=== PATIENT | female | born 1955 | race African-American/Black ===

== ENCOUNTER 2024-09-11 12:18 | Observation (INO) | payer MEDICARE, SELFPAY ==
[2024-09-11] VITALS (7 sets, daily range): BP systolic 131–170; BP diastolic 76–90; PULSE 65–98; RESP 16–20; TEMP 36.6–36.7; O2SAT 99–100; BMI 30.7
--- NOTE | 2024-09-11 14:35 | ED.GENADULT ---
HPI - General Adult General Chief complaint: Neuro Symptoms/Deficit Stated complaint: gait changes, ataxia Time Seen by Provider: 09/11/24 14:32 Source: patient Mode of arrival: ambulatory Limitations: no limitations History of Present Illness HPI narrative: 69 YEARS OLD FEMALE CAME TO THE ED WITH HER COMPLAINING OF UNSTEADY GAIT FOR THE LAST 5 DAYS. PATIENT HOLD ON FURNITURES AND ON THE WALL WITH FREQUENT FALLS OVER THE LAST 5 DAYS. SHE DENIES ANY FEVER, CHILLS, NAUSEA, VOMITING, HEADACHE, NECK PAIN OR BACK PAIN OR CHEST PAIN OR SHORTNESS OF BREATH. HISTORY OF HYPERTENSION, HYPERLIPIDEMIA, TIAS AND TOBACCO DEPENDENT, DOES NOT DRINK OR USE DRUGS PATIENT HAD HISTORY OF CERVICAL DECOMPRESSION 8 YEARS AGO Related Data Home Medications ?Medication ?Instructions ?Recorded ?Confirmed ?Last Taken ?Type amlodipine 5 mg tablet (Norvasc) 5 mg PO DAILY 09/11/24 09/11/24 Unknown History aspirin 81 mg capsule 81 mg PO DAILY 09/11/24 09/11/24 Unknown History cholecalciferol (vitamin D3) 125 15,000 unit PO WEEKLY 09/11/24 09/12/24 Unknown History mcg (5,000 unit) capsule gabapentin 800 mg tablet 800 mg PO HS 09/11/24 09/11/24 Unknown History hydrochlorothiazide 12.5 mg tablet 12.5 mg PO DAILY 09/11/24 09/11/24 Unknown History ibuprofen 800 mg tablet 800 mg PO Q6H 09/11/24 09/11/24 Unknown History ixekizumab 80 mg/mL subcutaneous 80 mg subcut ONCE 09/11/24 09/11/24 Unknown History auto-injector (Taltz Autoinjector) losartan 100 mg tablet (Cozaar) 100 mg PO DAILY 09/11/24 09/11/24 Unknown History rosuvastatin 40 mg tablet (Crestor) 40 mg PO DAILY 09/11/24 09/11/24 Unknown History tizanidine 4 mg capsule 4 mg PO HS 09/11/24 09/11/24 Unknown History tramadol 50 mg tablet 50 mg PO .am 09/11/24 09/11/24 09/11/24 History tramadol 50 mg tablet 50 mg PO Q6-8H PRN pain 09/11/24 09/11/24 Unknown History hydroxychloroquine 200 mg tablet 200 mg PO DAILY 09/12/24 09/12/24 Unknown History (Plaquenil) Allergies Allergy/AdvReac Type Severity Reaction Status Date / Time Sulfa (Sulfonamide Allergy Severe Anaphylaxis Verified 09/11/24 12:22 Antibiotics) Review of Systems Review of Systems: All systems reviewed & are unremarkable except as noted in HPI and below PMFSH Past Medical History Medical History (Updated 09/11/24 @ 22:59 by Larisa Pickering PA-C) Rheumatoid arthritis Transient ischemic attack Peripheral neuropathy Tobacco dependence Hyperlipidemia Hypertension Surgical History Surgical History (Updated 09/11/24 @ 22:59 by Larisa Pickering PA-C) History of arthroplasty of both shoulders History of lumbar fusion History of cervical spinal surgery Social History Social History (Updated 09/11/24 @ 23:00 by Larisa Pickering PA-C) Social History: Surrogate medical decision maker: Tacho Westbrook, spouse. Code status: Full code. Smoking packs per day: 0.5 Smoking cigarettes per day: 10.0 Years smoked: 30 Smoking pack-years: 15.00 Smoking status: Current every day smoker Tobacco type: cigarettes Second hand tobacco smoke exposure: Yes Alcohol intake: current Substance use: current Do You Feel Safe in your Home?: Yes Lack of Transportation: No Lack of Food: Never True Current Housing: I Have Housing Concerned About Future Housing: No Difficulty Paying Gas/Electric Bills: No Difficulty Paying for Meds: No Currently Unemployed: No Education: Associate Degree Difficulty w/ Childcare or Family Care: No Additional living arrangements comments: Lives with spouse. 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 Spiritual care concerns: No Exam Narrative: GENERAL APPEARANCE: WELL-DEVELOPED, WELL-NOURISHED SKIN: NORMAL COLOR HEAD: NORMOCEPHALIC, NONTRAUMATIC EYES: CLEAR CONJUNCTIVA, EXOPHTHALMOS ENT: OROPHARYNX NORMAL, EARS NORMAL, NOSE NORMAL, NECK: SUPPLE, NONTENDER CHEST AND RESPIRATORY: AIRWAY PATENT, NO RESPIRATORY DISTRESS, NO ACCESSORY MUSCLE USE HEART: REGULAR RATE/RHYTHM ABDOMEN: SOFT, NONTENDER, NO ORGANOMEGALY, QUIET BOWEL SOUNDS VASCULAR: NORMAL PERIPHERAL PULSES, NORMAL CAPILLARY REFILL. MUSCULOSKELETAL: NORMAL RANGE OF MOTION, NONTENDER BACK NEUROLOGIC: ALERT AND ORIENTED ?3 Course Consultations Consultation #1: DR DÍAZ Date: 09/11/24 Time: 16:48 Vital Signs Vital signs: Vital Signs Temperature 36.7 C 09/11/24 12:19 Pulse Rate 98 09/11/24 12:19 Respiratory Rate 16 09/11/24 12:19 Blood Pressure 147/82 H 09/11/24 12:19 Pulse Oximetry 100 09/11/24 12:19 Temperature 36.4 C L 09/12/24 04:45 Pulse Rate 64 09/12/24 08:00 Respiratory Rate 18 09/12/24 04:45 Blood Pressure 140/77 09/12/24 04:45 Pulse Oximetry 97 09/12/24 04:45 Oxygen Delivery Room Air 09/12/24 11:30 Medical Decision Making [facility] Narrative Medical decision making narrative: PATIENT PRESENTS WITH UNSTEADY GAIT AND FREQUENT FALLS OVER THE LAST 5 DAYS VITAL SIGNS ARE STABLE PHYSICAL EXAMINATION CONSISTENT WITH UNSTEADY GAIT AND SLIGHT WEAKNESS OF THE LOWER EXTREMITY BILATERALLY DIFFERENTIAL DIAGNOSIS INCLUDE B12 DEFICIENCY, HYPOTHYROIDISM, DEPRESSION, MUSCLE WEAKNESS, PARKINSON'S DISEASE, STROKE, MULTIPLE SCLEROSIS, CEREBELLAR ATAXIA, POLYNEUROPATHY AND NORMAL PRESSURE HYDROCEPHALUS BLOOD WORKUP TODAY INCLUDES CBC, CMP, TSH, TROPONIN SHOWED NO ACUTE ABNORMALITIES CT HEAD, CTA HEAD AND NECK SHOWED NO SIGNIFICANT ABNORMALITIES CHEST X-RAY SHOWED NO ACUTE CARDIOPULMONARY URINALYSIS SHOWED EVIDENCE OF INFECTION OR ABNORMALITIES Vital Signs Vital Signs: Vital Signs Temperature 36.7 C 09/11/24 12:19 Pulse Rate 98 09/11/24 12:19 Respiratory Rate 16 09/11/24 12:19 Blood Pressure 147/82 H 09/11/24 12:19 Pulse Oximetry 100 09/11/24 12:19 Temperature 36.4 C L 09/12/24 04:45 Pulse Rate 64 09/12/24 08:00 Respiratory Rate 18 09/12/24 04:45 Blood Pressure 140/77 09/12/24 04:45 Pulse Oximetry 97 09/12/24 04:45 Oxygen Delivery Room Air 09/12/24 11:30 Lab Data 09/11/24 15:01 09/12/24 06:14 Labs: Lab Results 09/11/24 09/11/24 09/11/24 Range/Units 15:01 15:57 16:17 WBC 8.9 (4.5-10.0) K/mm3 RBC 4.68 (4.2-5.4) M/mm3 Hgb 15.8 H (12.0-15.0) g/dL Hct 45.6 (37.0-47.0) % MCV 97.4 (80-100) fl MCH 33.8 (26-34) pg MCHC 34.6 (32-36) g/dl RDW 14.6 H (11.5-14.5) % Plt Count 298 (150-375) k/mm3 MPV 10.6 H (7.4-10.4) fl Immature Gran % (Auto) 0.1 (0-0.5) % Neut % (Auto) 50.3 (45.5-73.1) % Lymph % (Auto) 39.8 (18.3-44.2) % Garvin % (Auto) 6.1 (2.6-8.5) % Eos % (Auto) 3.2 (0-4.4) % Baso % (Auto) 0.5 (0.2-1.2) % Lymph # (Auto) 3.53 H (0.9-3.2) K/mm3 Garvin # (Auto) 0.5 (0.1-0.6) K/mm3 Eos # (Auto) 0.3 (0-0.3) K/mm3 Baso # (Auto) 0.0 (0.0-0.1) K/mm3 Abs Immat Gran (auto) 0.01 (0.00-0.031) K/mm3 Absolute Neuts (auto) 4.5 (1.3-6.7) K/mm3 Absolute Nucleated RBC 0.000 (0.0-0.012) K/mm3 Nucleated RBC % 0.0 (0.0-0.2) % PT 13.8 (11.1-14.7) Seconds INR 1.0 APTT 23.4 (22.3-36.8) Seconds Sodium 139 (137-145) mmol/L Potassium 4.2 (3.4-5.0) mmol/L Chloride 103 (98-107) mmol/L Carbon Dioxide 23 (22-30) mmol/L Anion Gap 13 H (4-12) mmol/L BUN 14 (7-17) mg/dL Creatinine 0.67 L (0.7-1.0) mg/dL Estim Creat Clear Calc 64 ml/min Estimated GFR > 60 (59 - ) Glucose 184 H (65-110) mg/dL POC Capillary Glucose 134 H (65-105) mg/dl Hemoglobin A1c 6.8 H (<5.7) % Calcium 9.6 (8.4-10.2) mg/dL Total Bilirubin 0.6 (0.2-1.3) mg/dL AST 52 H (14-36) U/L ALT 53 H (6-35) U/L Alkaline Phosphatase 131 H (38-126) U/L Troponin I 0.014 (0.000-0.034) ng/mL Total Protein 8.0 (6.3-8.2) g/dL Albumin 4.3 (3.5-5.1) g/dL Vitamin B12 587.0 (239-931) pg/mL TSH 0.461 L (0.465-4.680) uIU/mL Free T4 0.81 (0.78-2.19) ng/dL Urine Color Yellow (Yellow) Urine Appearance Clear (Clear) Urine pH 6.0 (5.0-9.0) Ur Specific [place] 1.043 H (1.001-1.035) Urine Protein 1+ H (Negative) mg/dL Urine Glucose (UA) Negative (Negative) mg/dL Urine Ketones Trace H (Negative) mg/dL Ur Blood (Man) Negative (Negative) Urine Nitrate Negative (Negative) Urine Bilirubin Negative (Negative) Urine Urobilinogen 0.2 (<2.0) mg/dL Leukocyte Esterase Rfl Negative (Negative) TIERNEY/UL Urine RBC 0-2 (0-2) /hpf Urine WBC 0-5 (0-3) /hpf Ur Squamous Epith Cells None seen (Few) /hpf Urine Bacteria None seen /hpf Urine Casts 3-5 Imaging Data Radiologist's impression: Impressions Chest X-Ray 09/11/24 15:17 IMPRESSION: No acute cardiopulmonary pathology. Head/Neck CTA 09/11/24 15:58 IMPRESSION: 1. CTA neck. Percent stenosis per NASCET criteria is 10% on the left side. 2. Bifid right A1 segment. No significant stenosis seen in the intracranial arteries. 3. Right posterior communicating artery continues as the posterior cerebral artery. ECG Data EKG #1: Attestation: I personally reviewed and interpreted this ECG as follows: ECG completion date: 09/11/24 Interpretation: NORMAL SINUS RHYTHM AT 73 BEATS PER MINUTE, VOLTAGE CRITERIA FOR LVH, NONSPECIFIC ST T-WAVE ABNORMALITY, NO PREVIOUS EKG AVAILABLE FOR COMPARISON Critical Care Time Critical Care Time Critical Care Time: No Discharge Plan Discharge Clinical Impression: Unsteady gait when walking Patient Disposition: Still a Patient Condition: Guarded Prognosis Quality Stroke Scale Stroke Scale 1: Stroke scale date:: 09/11/24 1a Level of consciousness: alert-0 1b Level of consciousness questions: answers both correctly-0 1c Level of consciousness commands: obeys both correctly-0 2 Best gaze: normal-0 3 Visual: no visual loss-0 4 Facial palsy: normal-0 5a Motor: left arm: no drift-0 5b Motor: right arm: no drift-0 6a Motor: left leg: no drift-0 6b Motor: right leg: no drift-0 7 Limb ataxia: present in two limbs-2 8 Sensory: normal-0 9 Best language: no aphasia-0 10 Dysarthria: normal-0 11 Extinction and inattention: no abnormality-0 Level:: 2
[2024-09-11 15:12] LABS: Basophils Percent Auto 0.5 % (0.2-1.2); Eosinophils Absolute Auto 0.3 K/mm3 (0-0.3); Eosinophils Percent Auto 3.2 % (0-4.4); Hematocrit 45.6 % (37.0-47.0); Hemoglobin 15.8 g/dL (12.0-15.0); Immature Granulocyte Absolute 0.01 K/mm3 (0.00-0.031); Immature Granulocyte Percent A 0.1 % (0-0.5); Lymphocytes Absolute Auto 3.53 K/mm3 (0.9-3.2); Lymphocytes Percent Auto 39.8 % (18.3-44.2); Mean Corpuscular HGB Conc 34.6 g/dl (32-36); Mean Corpuscular Hemoglobin 33.8 pg (26-34); Mean Corpuscular Volume 97.4 fl (80-100); Mean Platelet Volume 10.6 fl (7.4-10.4); Monocytes Absolute Auto 0.5 K/mm3 (0.1-0.6); Monocytes Percent Auto 6.1 % (2.6-8.5); Neutrophils Absolute Auto 4.5 K/mm3 (1.3-6.7); Neutrophils Percent Auto 50.3 % (45.5-73.1); Platelet Count Result 298 k/mm3 (150-375); Red Blood Count 4.68 M/mm3 (4.2-5.4); Red Cell Distribution Width 14.6 % (11.5-14.5); White Blood Count 8.9 K/mm3 (4.5-10.0)
[2024-09-11 15:17] LABS: Partial Thromboplastin Time 23.4 Seconds (22.3-36.8); Prothrombin Time 13.8 Seconds (11.1-14.7)
[2024-09-11 15:26] LABS: Alanine Aminotransferase 53 U/L (6-35); Albumin Level 4.3 g/dL (3.5-5.1); Alkaline Phosphatase 131 U/L (38-126); Anion Gap 13 mmol/L (4-12); Aspartate Amino Transferase 52 U/L (14-36); Bilirubin,Total 0.6 mg/dL (0.2-1.3); Blood Urea Nitrogen 14 mg/dL (7-17); Calcium 9.6 mg/dL (8.4-10.2); Carbon Dioxide 23 mmol/L (22-30); Chloride 103 mmol/L (98-107); Estimated CRCL calculation 64 ml/min; Estimated Glomerular Filt Rate > 60; Glucose 184 mg/dL (65-110); Potassium 4.2 mmol/L (3.4-5.0); Sodium 139 mmol/L (137-145)
[2024-09-11 15:35] LABS: Troponin I 0.014 ng/mL (0.000-0.034)
[2024-09-11 15:54] LABS: Thyroid Stimulating Hormone 0.461 uIU/mL (0.465-4.680)
[2024-09-11 16:01] LABS: Glucose Point of Care 134 mg/dl (65-105)
[2024-09-11 16:32] LABS: Add Urine Microscopic? YES; Appearance Urine Clear (Clear); Bacteria Urine None Seen /hpf; Bilirubin Urine Negative (Negative); Blood Urine Negative (Negative); Color Urine Yellow (Yellow); Glucose Urine UA Negative (Negative); Ketones Urine Trace mg/dL (Negative); Leukocyte Esterase Ur Negative LEU/UL (Negative); Nitrate Urine Negative (Negative); Protein Urine 1+ mg/dL (Negative); RBC Urine 0-2 /hpf (0-2); Specific Grav Ur 1.043 (1.001-1.035); Squamous Epithelial Cell Urine None Seen /hpf (Few); Urobilinogen Urine 0.2 mg/dL (<2.0); WBC Urine 0-5 /hpf (0-3)
--- NOTE | 2024-09-11 17:05 | PM.IMHP ---
H&P: HPI History of Present Illness Date/Time: 09/11/24 18:30 Chief Complaint: Balance problems. Narrative: This is a pleasure 69-year-old female smoker with history of transient ischemic attack, cervical spine decompression several years ago, lumbar fusion, peripheral neuropathy affecting left lateral toes only, hypertension, hyperlipidemia, and rheumatoid arthritis who presented to the emergency department via private vehicle with complaints of balance problems. The patient provides the following history. She gives a 5 day history of feeling off balance and reports having to hold onto furniture and roe to stabilize herself while walking. She has had several falls, landing on her knees, but luckily has not injured herself aside from abrasions. She also feels that her legs are heavy. She denies vision changes, facial droop, difficulty speaking and swallowing, neck pain, arm pain, focal weakness, new paresthesias, saddle anesthesia, urine retention, bowel incontinence, and recent trauma. In the ED: Vital signs were stable on arrival. Labs were significant for a hemoglobin of 15.8, creatinine 0.67, glucose 184, AST 52, ALT 53, alkaline phosphatase 131, troponin 0.014, TSH 0.461. Head and neck CTA did not show any significant findings. She is being admitted in this setting for close monitoring and neurology consultation. Review of Systems Review of Systems: 12 systems were reviewed and are negative except for as per HPI. [facility] Past Medical History Medical History (Updated 09/11/24 @ 22:59 by Larisa Pickering PA-C) Rheumatoid arthritis Transient ischemic attack Peripheral neuropathy Tobacco dependence Hyperlipidemia Hypertension Surgical History Surgical History (Updated 09/11/24 @ 22:59 by Larisa Pickering PA-C) History of arthroplasty of both shoulders History of lumbar fusion History of cervical spinal surgery Social History Social History (Updated 09/11/24 @ 23:00 by Larisa Pickering PA-C) Social History: Surrogate medical decision maker: Tacho Westbrook, spouse. Code status: Full code. Smoking packs per day: 0.5 Smoking cigarettes per day: 10.0 Years smoked: 30 Smoking pack-years: 15.00 Smoking status: Current every day smoker Tobacco type: cigarettes Second hand tobacco smoke exposure: Yes Alcohol intake: current Substance use: current Do You Feel Safe in your Home?: Yes Lack of Transportation: No Lack of Food: Never True Current Housing: I Have Housing Concerned About Future Housing: No Difficulty Paying Gas/Electric Bills: No Difficulty Paying for Meds: No Currently Unemployed: No Education: Associate Degree Difficulty w/ Childcare or Family Care: No Additional living arrangements comments: Lives with spouse. 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 Spiritual care concerns: No Meds Home Medications and Allergies Allergies Allergy/AdvReac Type Severity Reaction Status Date / Time Sulfa (Sulfonamide Allergy Severe Anaphylaxis Verified 09/11/24 12:22 Antibiotics) Vital Signs Vital Signs - 24 hr 09/11/24 12:19 09/11/24 14:33 09/11/24 16:05 Temperature 98.0 F Pulse Rate 98 82 98 Respiratory Rate 16 20 18 Blood Pressure 147/82 H 170/84 H 147/76 H Pulse Oximetry 100 99 99 Exam Narrative: General: Nontoxic-appearing female in the semi-Valdivia position in bed in no acute distress. Weight: 73.9 kg. BMI: 30.8. HEENT: PERRL, EOMI. Sclera anicteric. Oral mucosa moist. Oropharynx clear. Neck: Supple. No carotid bruits. No midline vertebral tenderness. Respiratory: Lungs are clear to auscultation bilaterally. Cardiovascular: Regular rate and rhythm with S1-S2. Gastrointestinal: Abdomen is soft, nontender, and nondistended with positive bowel sounds. Skin: Warm and dry. No rash or lesions on limited exam. Extremities: No cyanosis, clubbing, or edema. Radial and pedal pulses intact. Neurological: Alert and oriented. Cranial nerves 2-12 are grossly intact. Speech is clear. No facial asymmetry. No pronator drift. Normal finger to nose. Hand retail consultant and foot pushes equal bilaterally. Sensation intact throughout. Dysmetric [id number] bilaterally. Psychiatric: Pleasant and cooperative with normal mood and affect. Judgment and insight intact. H&P: Results Labs Labs: Short CBC 09/11/24 Range/Units 15:01 WBC 8.9 (4.5-10.0) K/mm3 Hgb 15.8 H (12.0-15.0) g/dL Hct 45.6 (37.0-47.0) % Plt Count 298 (150-375) k/mm3 [facility] 09/11/24 15:01 Sodium 139 Potassium 4.2 Chloride 103 Carbon Dioxide 23 BUN 14 Creatinine 0.67 L Glucose 184 H Calcium 9.6 Cardiac Enzymes 09/11/24 Range/Units 15:01 Troponin I 0.014 (0.000-0.034) ng/mL Liver Function 09/11/24 Range/Units 15:01 Total Bilirubin 0.6 (0.2-1.3) mg/dL AST 52 H (14-36) U/L ALT 53 H (6-35) U/L Alkaline Phosphatase 131 H (38-126) U/L Albumin 4.3 (3.5-5.1) g/dL Urine 09/11/24 Range/Units 16:17 Urine Color Yellow (Yellow) Urine Appearance Clear (Clear) Urine pH 6.0 (5.0-9.0) Ur Specific [place] 1.043 H (1.001-1.035) Urine Protein 1+ H (Negative) mg/dL Urine Glucose (UA) Negative (Negative) mg/dL Imaging Chest X-Ray 09/11/24 15:17 IMPRESSION: 1. No acute cardiopulmonary pathology. Head/Neck CTA 09/11/24 15:58 IMPRESSION: 1. CTA neck. Percent stenosis per NASCET criteria is 10% on the left side. 2. Bifid right A1 segment. No significant stenosis seen in the intracranial arteries. 3. Right posterior communicating artery continues as the posterior cerebral artery. Assessment and Plan Assessment and plan (1) Ataxia: Code(s): R27.0 - Ataxia, unspecified Status: Acute (2) Hyperglycemia: Code(s): R73.9 - Hyperglycemia, unspecified Status: Acute (3) Hypertension: Code(s): I10 - Essential (primary) hypertension Status: Acute (4) Hyperlipidemia: Code(s): E78.5 - Hyperlipidemia, unspecified Status: Acute (5) Tobacco dependence: Code(s): F17.200 - Nicotine dependence, unspecified, uncomplicated Status: Acute Plan The patient presented to the emergency department for evaluation of feelings of being off balance the last 5 days as detailed in HPI. Labs, imaging, EKG, and all reports were personally reviewed. She has ataxia of unclear etiology. Posterior circulation infarct is considered and a brain MRI has been ordered. Given her history of cervical spine decompression and similar symptoms presenting prior to that surgery, a cervical spine MRI has also been ordered as well as a lumbar MRI. Does not seem to be peripheral in etiology. Neurology has been consulted for recommendations. Continue neurologic checks q.4 hours and initiate fall precautions. Blood pressures have been running in the 130s 140 systolic and will be monitored closely. Check fasting glucose and lipids in a.m. as well as a hemoglobin A1c. Smoking cessation is imperative and was discussed. She declines the need for nicotine patch at this time. Her home medications will be reviewed and resumed as appropriate. Findings and treatment plan were discussed with the patient. Questions were solicited and answered to satisfaction. The patient's medical management will be taken over by the hospitalist team in a.m. Quality VTE Prophylaxis VTE prophylaxis: mechanical ordered If No VTE Prophylaxis Answer both mechanical and pharmacologic: Reason no pharmacologic proph: medical contraindication (fall risk, may need procedure) Hospitalist MIPS Advance Care Plan I have confirmed that the patient's Advanced Care Plan is present, code status is documented, or surrogate decision maker is listed in patient medical record.: Yes Medication Reconciliation I have utilized all available resources to obtain, update and review the patients current medications (includes all prescriptions, OTC, herbals, cannabis, and nutritional supplements).: Yes
[2024-09-11 19:13] LABS: Hemoglobin A1C 6.8 % (<5.7)
[2024-09-11 19:28] LABS: Free T4 Free Thyroxine 0.81 ng/dL (0.78-2.19)
[2024-09-11 21:28] LABS: Glucose Point of Care 141 mg/dl (65-105)
[2024-09-12] VITALS (7 sets, daily range): BP systolic 124–155; BP diastolic 65–79; PULSE 64–85; RESP 16–18; TEMP 36.4–36.6; O2SAT 95–99
[2024-09-12 07:35] LABS: Alanine Aminotransferase 55 U/L (6-35); Albumin Level 4.1 g/dL (3.5-5.1); Alkaline Phosphatase 122 U/L (38-126); Anion Gap 8 mmol/L (4-12); Aspartate Amino Transferase 56 U/L (14-36); Bilirubin,Total 0.4 mg/dL (0.2-1.3); Blood Urea Nitrogen 16 mg/dL (7-17); Carbon Dioxide 27 mmol/L (22-30); Chloride 105 mmol/L (98-107); Cholesterol 208 mg/dL (0-200); Estimated CRCL calculation 69 ml/min; Estimated Glomerular Filt Rate > 60; Glucose 160 mg/dL (65-110); HDL Direct 54 mg/dL; Magnesium 2.1 mg/dL (1.6-2.3); Potassium 4.1 mmol/L (3.4-5.0); Sodium 140 mmol/L (137-145); Triglycerides 120 mg/dL (<150)
[2024-09-12 07:46] LABS: LDL Cholesterol Direct 114 mg/dL
[2024-09-12 09:05] LABS: Glucose Point of Care 200 mg/dl (65-105)
--- NOTE | 2024-09-12 09:22 | PM.IMPN ---
Progress Note: A&P Assessment and Plan (1) Ataxia: Code(s): R27.0 - Ataxia, unspecified Status: Acute (2) Hyperglycemia: Code(s): R73.9 - Hyperglycemia, unspecified Status: Acute (3) Hypertension: Code(s): I10 - Essential (primary) hypertension Status: Acute (4) Hyperlipidemia: Code(s): E78.5 - Hyperlipidemia, unspecified Status: Acute (5) Tobacco dependence: Code(s): F17.200 - Nicotine dependence, unspecified, uncomplicated Status: Acute Plan The patient presented to the emergency department for evaluation of feelings of being off balance the last 5 days as detailed in HPI. Labs, imaging, EKG, and all reports were personally reviewed. She has ataxia of unclear etiology. Posterior circulation infarct is considered and a brain MRI has been ordered. Given her history of cervical spine decompression and similar symptoms presenting prior to that surgery, a cervical spine MRI has also been ordered as well as a lumbar MRI. Does not seem to be peripheral in etiology. Neurology has been consulted for recommendations. Continue neurologic checks q.4 hours and initiate fall precautions. Blood pressures have been running in the 130s 140 systolic and will be monitored closely. Check fasting glucose and lipids in a.m. as well as a hemoglobin A1c. Smoking cessation is imperative and was discussed. She declines the need for nicotine patch at this time. Her home medications will be reviewed and resumed as appropriate. Time Spent With Patient Time with patient: 25 - 35 minutes Subjective Date/time seen: 09/12/24 09:22 Interval history: 69-year-old female smoker with history of transient ischemic attack, cervical spine decompression several years ago, lumbar fusion, peripheral neuropathy affecting left lateral toes only, hypertension, hyperlipidemia, and rheumatoid arthritis who presented to the emergency department via private vehicle with complaints of balance problems. The patient provides the following history. She gives a 5 day history of feeling off balance and reports having to hold onto furniture and roe to stabilize herself while walking. She has had several falls, landing on her knees, but luckily has not injured herself aside from abrasions. She also feels that her legs are heavy. She denies vision changes, facial droop, difficulty speaking and swallowing, neck pain, arm pain, focal weakness, new paresthesias, saddle anesthesia, urine retention, bowel incontinence, and recent trauma. In the ED: Vital signs were stable on arrival. Labs were significant for a hemoglobin of 15.8, creatinine 0.67, glucose 184, AST 52, ALT 53, alkaline phosphatase 131, troponin 0.014, TSH 0.461. Head and neck CTA did not show any significant findings. She is being admitted for monitoring and neurology consultation. Pt is seen and examined. Review of Systems Review of Systems: 12 systems were reviewed and are negative except for as per HPI. Exam Narrative: General: Nontoxic-appearing female in the semi-Valdivia position in bed in no acute distress. Weight: 73.9 kg. BMI: 30.8. HEENT: PERRL, EOMI. Sclera anicteric. Oral mucosa moist. Oropharynx clear. Neck: Supple. No carotid bruits. No midline vertebral tenderness. Respiratory: Lungs are clear to auscultation bilaterally. Cardiovascular: Regular rate and rhythm with S1-S2. Gastrointestinal: Abdomen is soft, nontender, and nondistended with positive bowel sounds. Skin: Warm and dry. No rash or lesions on limited exam. Extremities: No cyanosis, clubbing, or edema. Radial and pedal pulses intact. Neurological: Alert and oriented. Cranial nerves 2-12 are grossly intact. Speech is clear. No facial asymmetry. No pronator drift. Normal finger to nose. Hand internal affairs investigator and foot pushes equal bilaterally. Sensation intact throughout. Dysmetric [id number] bilaterally. Psychiatric: Pleasant and cooperative with normal mood and affect. Judgment and insight intact. Objective Data Vital Signs Vital Signs: Vital Signs - 24 hr 09/11/24 12:19 09/11/24 14:33 09/11/24 16:05 Temperature 98.0 F Pulse Rate 98 82 98 Respiratory Rate 16 20 18 Blood Pressure 147/82 H 170/84 H 147/76 H Pulse Oximetry 100 99 99 Oxygen Delivery 09/11/24 18:00 09/11/24 18:23 09/11/24 21:32 Temperature 97.9 F Pulse Rate 78 78 65 Respiratory Rate 20 17 16 Blood Pressure 131/90 131/90 160/77 H Pulse Oximetry 99 99 99 Oxygen Delivery 09/11/24 22:00 09/12/24 00:00 09/12/24 02:00 Temperature Pulse Rate 65 85 Respiratory Rate 16 Blood Pressure 160/77 H Pulse Oximetry 99 Oxygen Delivery Room Air 09/12/24 02:30 09/12/24 02:33 09/12/24 02:35 Temperature 98 F Pulse Rate 73 77 81 Respiratory Rate 16 Blood Pressure 155/75 H 154/79 H 124/65 Pulse Oximetry 98 95 99 Oxygen Delivery 09/12/24 04:00 09/12/24 04:45 Temperature 97.5 F L Pulse Rate 77 64 Respiratory Rate 18 Blood Pressure 140/77 Pulse Oximetry 97 Oxygen Delivery Intake/Output Intake/Output: Intake & Output 09/09/24 09/10/24 09/11/24 09/12/24 23:59 23:59 23:59 23:59 Intake Total 100 Balance 100 Meds/Results Medications: Active Medications Generic Name Dose Route Start Last Admin Trade Name Freq PRN Reason Stop Dose Admin Acetaminophen 650 mg 09/11/24 17:04 Acetaminophen 325 Mg Tablet PO Q4H PRN Mild Pain (1-3) or Fever Dextrose 12.5 gm 09/11/24 18:21 Dextrose 50% 25 Gm/50 Ml Syringe IV PUSH PRN PRN Hypoglycemia Protocol Gabapentin 800 mg 09/12/24 21:00 Gabapentin 400 Mg Capsule PO HS [facility] Glucagon 1 mg 09/11/24 18:21 Glucagon For Inj 1 Mg Vial IM PRN PRN Hypoglycemia Protocol Glucose 15 gm 09/11/24 18:21 Glucose Oral Gel 15 Gm Of Glucse In 37.5 Gm Tube PO PRN PRN Hypoglycemia Protocol Dextrose 1,000 mls @ 100 mls/hr 09/11/24 18:21 Dextrose 5% 1,000 Ml IVPB PRN PRN Hypoglycemia Protocol Insulin Aspart 2 - 5 units 09/12/24 08:00 09/12/24 08:49 Insulin Aspart (*Bkc) 100 Units/Ml SUB-Q Not Given TIDWM [facility] Protocol Insulin Aspart 1 - 2 units 09/11/24 21:00 09/11/24 21:27 Insulin Aspart (*Bkc) 100 Units/Ml SUB-Q Not Given HS [facility] Protocol Perflutren Lipid Microsphere 0 ml 09/11/24 18:21 Perflutren Lipid Microspheres 1.5 Ml Vial Diluted To 10 Ml Total Volume IV PUSH 09/14/24 18:21 ONCE PRN adequate visualization Protocol Radiology Results: ITS Impressions Chest X-Ray 09/11/24 15:17 IMPRESSION: No acute cardiopulmonary pathology. Head/Neck CTA 09/11/24 15:58 IMPRESSION: 1. CTA neck. Percent stenosis per NASCET criteria is 10% on the left side. 2. Bifid right A1 segment. No significant stenosis seen in the intracranial arteries. 3. Right posterior communicating artery continues as the posterior cerebral artery. Labs Labs: Laboratory Results - last 24 hr 09/11/24 09/11/24 09/11/24 15:01 15:57 16:17 WBC 8.9 RBC 4.68 Hgb 15.8 H Hct 45.6 MCV 97.4 MCH 33.8 MCHC 34.6 RDW 14.6 H Plt Count 298 MPV 10.6 H Immature Gran % (Auto) 0.1 Neut % (Auto) 50.3 Lymph % (Auto) 39.8 [place] % (Auto) 6.1 Eos % (Auto) 3.2 Baso % (Auto) 0.5 Lymph # (Auto) 3.53 H [place] # (Auto) 0.5 Eos # (Auto) 0.3 Baso # (Auto) 0.0 Abs Immat Gran (auto) 0.01 Absolute Neuts (auto) 4.5 Absolute Nucleated RBC 0.000 Nucleated RBC % 0.0 PT 13.8 INR 1.0 APTT 23.4 Sodium 139 Potassium 4.2 Chloride 103 Carbon Dioxide 23 Anion Gap 13 H BUN 14 Creatinine 0.67 L Estim Creat Clear Calc 64 Estimated GFR > 60 Glucose 184 H POC Capillary Glucose 134 H Hemoglobin A1c 6.8 H Calcium 9.6 Magnesium Total Bilirubin 0.6 AST 52 H ALT 53 H Alkaline Phosphatase 131 H Troponin I 0.014 Total Protein 8.0 Albumin 4.3 Triglycerides Cholesterol LDL Cholesterol Direct HDL Direct Vitamin B12 587.0 TSH 0.461 L Free T4 0.81 Urine Color Yellow Urine Appearance Clear Urine pH 6.0 Ur Specific [place] 1.043 H Urine Protein 1+ H Urine Glucose (UA) Negative Urine Ketones Trace H Ur Blood (Man) Negative Urine Nitrate Negative Urine Bilirubin Negative Urine Urobilinogen 0.2 Leukocyte Esterase Rfl Negative Urine RBC 0-2 Urine WBC 0-5 Ur Squamous Epith Cells None seen Urine Bacteria None seen Urine Casts 3-5 09/11/24 09/12/24 09/12/24 21:26 06:14 08:46 WBC RBC Hgb Hct MCV MCH MCHC RDW Plt Count MPV Immature Gran % (Auto) Neut % (Auto) Lymph % (Auto) [place] % (Auto) Eos % (Auto) Baso % (Auto) Lymph # (Auto) [place] # (Auto) Eos # (Auto) Baso # (Auto) Abs Immat Gran (auto) Absolute Neuts (auto) Absolute Nucleated RBC Nucleated RBC % PT INR APTT Sodium 140 Potassium 4.1 Chloride 105 Carbon Dioxide 27 Anion Gap 8 BUN 16 Creatinine 0.62 L Estim Creat Clear Calc 69 Estimated GFR > 60 Glucose 160 H POC Capillary Glucose 141 H 200 H Hemoglobin A1c Calcium 9.0 Magnesium 2.1 Total Bilirubin 0.4 AST 56 H ALT 55 H Alkaline Phosphatase 122 Troponin I Total Protein 8.0 Albumin 4.1 Triglycerides 120 Cholesterol 208 H LDL Cholesterol Direct 114 HDL Direct 54 Vitamin B12 TSH Free T4 Urine Color Urine Appearance Urine pH Ur Specific [place] Urine Protein Urine Glucose (UA) Urine Ketones Ur Blood (Man) Urine Nitrate Urine Bilirubin Urine Urobilinogen Leukocyte Esterase Rfl Urine RBC Urine WBC Ur Squamous Epith Cells Urine Bacteria Urine Casts Quality VTE Prophylaxis VTE prophylaxis: mechanical ordered
--- NOTE | 2024-09-12 11:45 | PC.NURSE ---
RN and freelance art director went to patient's room to give home medications that have been restarted this morning. Patient asked where her gabapentin was. RN informed patient that is was restarted for bedtime, but was not aware she took it in the morning as night RN reconciled patient's medications. Patient stated You need to get the doctor in here right now because I take 1600mg of gabapentin in the morning and at night. RN stated, I will call the hospitalist as soon as possible, but please understand that patient's that come into the hospital with new onset acute symptoms, hospitalist's do not always restart all home medications as this can be a contributing factor to your symptoms. Therefore, hospitalist's review all reports, labs, vitals, ect to determine what the best plan of care is for the patient. Patient stated I will be getting all my medications now or I can leave. RN listed patient's medications off that she will be getting at this moment (see MAR). Patient stated I will go to [facility] and they will give me what I am asking for. RN stated I will grab AMA paperwork for you. RN returned to the room with AMA paperwork and patient threw deckhand oyster dredge across the bed. Then proceeded to throw the clipboard and AMA paperwork across the bed. RN grabbed the signed AMA paperwork and then called security to come to unit as standby due to patient's aggressive behaviors.
--- NOTE | 2024-09-12 12:37 | PM.DS ---
DS: Admitting Diagnosis Discharge Date 09/12 Admitting Diagnosis unsteady gate DS: Discharge Diagnosis Discharge Diagnosis (1) Ataxia: Code(s): R27.0 - Ataxia, unspecified Status: Acute (2) Hyperglycemia: Code(s): R73.9 - Hyperglycemia, unspecified Status: Acute (3) Hypertension: Code(s): I10 - Essential (primary) hypertension Status: Acute (4) Hyperlipidemia: Code(s): E78.5 - Hyperlipidemia, unspecified Status: Acute (5) Tobacco dependence: Code(s): F17.200 - Nicotine dependence, unspecified, uncomplicated Status: Acute DS: Summary Hospital Course Hospital Course: This admitted for evaluation of feelings of being off balance the last 5 days as detailed in HPI. She has ataxia of unclear etiology. Noted that she is on a lot of medication that could cause balance issues- pain meds, gabapentin, etc. Posterior circulation infarct is considered and a brain MRI has been ordered. Given her history of cervical spine decompression and similar symptoms presenting prior to that surgery, a cervical spine MRI has also been ordered as well as a lumbar MRI. Neurology has been consulted. Continue neurologic checks q.4 hours and initiate fall precautions. Note that p was not seen or examined as per RN report she was demanding pain meds given at the certain dose and the certain time and was allegedly very impatient when she was not receiving what she asked for right away. She signed out AMA and left before i could go and speak with her. Apparently her balance improved as she was able to walk out of her with no problems. Status at Discharge Functional status at discharge: independent ambulation Overall status at discharge: patient is back to baseline Time Spent with Patient Time attestation: Total time spent providing and/or coordinating discharge services: Time spent: Less than 30 minutes Exam Narrative: exam is not done as pt left AMA prior to exam DS: Data Data Completed and Pending Labs on day of discharge: Labs from last 24 hours 09/12/24 09/12/24 09/11/24 08:46 06:14 21:26 WBC RBC Hgb Hct MCV MCH MCHC RDW Plt Count MPV Immature Gran % (Auto) Neut % (Auto) Lymph % (Auto) [place] % (Auto) Eos % (Auto) Baso % (Auto) Lymph # (Auto) [place] # (Auto) Eos # (Auto) Baso # (Auto) Abs Immat Gran (auto) Absolute Neuts (auto) Absolute Nucleated RBC Nucleated RBC % PT INR APTT Sodium 140 Potassium 4.1 Chloride 105 Carbon Dioxide 27 Anion Gap 8 BUN 16 Creatinine 0.62 L Estim Creat Clear Calc 69 Estimated GFR > 60 Glucose 160 H POC Capillary Glucose 200 H 141 H Hemoglobin A1c Calcium 9.0 Magnesium 2.1 Total Bilirubin 0.4 AST 56 H ALT 55 H Alkaline Phosphatase 122 Troponin I Total Protein 8.0 Albumin 4.1 Triglycerides 120 Cholesterol 208 H LDL Cholesterol Direct 114 HDL Direct 54 Vitamin B12 TSH Free T4 Urine Color Urine Appearance Urine pH Ur Specific [place] Urine Protein Urine Glucose (UA) Urine Ketones Ur Blood (Man) Urine Nitrate Urine Bilirubin Urine Urobilinogen Leukocyte Esterase Rfl Urine RBC Urine WBC Ur Squamous Epith Cells Urine Bacteria Urine Casts 09/11/24 09/11/24 09/11/24 16:17 15:57 15:01 WBC 8.9 RBC 4.68 Hgb 15.8 H Hct 45.6 MCV 97.4 MCH 33.8 MCHC 34.6 RDW 14.6 H Plt Count 298 MPV 10.6 H Immature Gran % (Auto) 0.1 Neut % (Auto) 50.3 Lymph % (Auto) 39.8 [place] % (Auto) 6.1 Eos % (Auto) 3.2 Baso % (Auto) 0.5 Lymph # (Auto) 3.53 H [place] # (Auto) 0.5 Eos # (Auto) 0.3 Baso # (Auto) 0.0 Abs Immat Gran (auto) 0.01 Absolute Neuts (auto) 4.5 Absolute Nucleated RBC 0.000 Nucleated RBC % 0.0 PT 13.8 INR 1.0 APTT 23.4 Sodium 139 Potassium 4.2 Chloride 103 Carbon Dioxide 23 Anion Gap 13 H BUN 14 Creatinine 0.67 L Estim Creat Clear Calc 64 Estimated GFR > 60 Glucose 184 H POC Capillary Glucose 134 H Hemoglobin A1c 6.8 H Calcium 9.6 Magnesium Total Bilirubin 0.6 AST 52 H ALT 53 H Alkaline Phosphatase 131 H Troponin I 0.014 Total Protein 8.0 Albumin 4.3 Triglycerides Cholesterol LDL Cholesterol Direct HDL Direct Vitamin B12 587.0 TSH 0.461 L Free T4 0.81 Urine Color Yellow Urine Appearance Clear Urine pH 6.0 Ur Specific [place] 1.043 H Urine Protein 1+ H Urine Glucose (UA) Negative Urine Ketones Trace H Ur Blood (Man) Negative Urine Nitrate Negative Urine Bilirubin Negative Urine Urobilinogen 0.2 Leukocyte Esterase Rfl Negative Urine RBC 0-2 Urine WBC 0-5 Ur Squamous Epith Cells None seen Urine Bacteria None seen Urine Casts 3-5 Discharge Plan Discharge Attending physician on discharge: Delmar Grimes Consulting providers: Davin Coleman; Eduardo Crews Discharging Clinician: Victoria Berry Patient Disposition: Left Against Medical Advice Activity: november shower Diet: heart healthy Discharge Instructions: you were admitted for balance issues. We consulted neurology and ordered mri and other tests. However, you decide to leave prior to completion of these tests and seeing neurology. It is important for you to follow up with your PCP and/or neurology to further follow up on your symptoms. Also very important for your PCP to evaluate your pain meds as they might be causing some symptoms for you as well. Patient Language: Fijian Follow-up/Referrals: PHYSICIAN NOT ON STAFF,NONSTAFF [Primary Care Provider] - 1 Week Discharge Medications: No Action gabapentin 800 mg tablet 800 mg PO HS tizanidine 4 mg capsule 4 mg PO HS tramadol 50 mg tablet 50 mg PO Q6-8H PRN (Reason: pain) tramadol 50 mg tablet 50 mg PO .am amlodipine [Norvasc] 5 mg tablet 5 mg PO DAILY rosuvastatin [Crestor] 40 mg tablet 40 mg PO DAILY ibuprofen 800 mg tablet 800 mg PO Q6H aspirin 81 mg capsule 81 mg PO DAILY losartan [Cozaar] 100 mg tablet 100 mg PO DAILY hydrochlorothiazide 12.5 mg tablet 12.5 mg PO DAILY Taltz Autoinjector 80 mg/mL auto-injector 80 mg subcut ONCE Patient Comments: Pt takes q4wks due tomorrow will bring dose cholecalciferol (vitamin D3) 125 mcg (5,000 unit) capsule 15,000 unit PO WEEKLY Patient Comments: due tomorrow hydroxychloroquine [Plaquenil] 200 mg tablet 200 mg PO DAILY Date of admission: 09/11/24 17:05 Primary Care Provider: PHYSICIAN NOT ON STAFF,NONSTAFF Admitting Provider: Simone Vega Attending physician on admission: Simone Vega Condition: Guarded Prognosis Quality VTE Prophylaxis VTE prophylaxis: mechanical ordered Hospitalist MIPS Heart Failure (Exclusion) Patient has history of Heart Transplant or Left Ventricular Assistive Device?: No IF YES, STOP HERE Heart Failure (Qualifier) Patient has current or prior documentation of LVEF less than or equal to 40%, or mod/servere depressed LVSF?: No IF NO, STOP HERE
== END 2024-09-12 11:50 | disposition left against medical advice (07) ==
LOC: ANHED 16:48 → ANH3MED 09-12 12:46 → ANH3MEDSUR 09-13 09:55
PROVIDERS: Physician Assistant; Admitting Provider General Practice; Emergency Provider Emergency Medicine; Visit Provider Internal Medicine
DX: R27.0 Ataxia, unspecified (principal); R73.9 Hyperglycemia, unspecified; I10 Essential (primary) hypertension; E78.5 Hyperlipidemia, unspecified; F17.210 Nicotine dependence, cigarettes, uncomplicated; M06.9 Rheumatoid arthritis, unspecified; G62.9 Polyneuropathy, unspecified; Z79.899 Other long term (current) drug therapy; R29.6 Repeated falls; Z86.73 Personal history of transient ischemic attack (TIA), and cerebral infarction without residual deficits; Z98.1 Arthrodesis status; Z98.890 Other specified postprocedural states
CPT/HCPCS: 36415; 70496; 70498; 71045; 72040; 80053; 80061; 81001; 82607; 82948; 83036; 83735; 84439; 84443; 84484; 85025; 85610; 85730; 93005; 99285; A9270; G0378; Q9967

== ENCOUNTER 2025-03-26 13:41 | Observation (INO) | payer MEDICARE, SELFPAY ==
[2025-03-26] VITALS (10 sets, daily range): BP systolic 161–202; BP diastolic 66–95; PULSE 62–81; RESP 12–20; TEMP 36.1–36.9; O2SAT 96–100; BMI 29.2
--- NOTE | ~2025-03-26 | XR_ITS ---
EXAMINATION: XR chest 2V, 03/26/2025 14:45 CDT HISTORY: syncope COMPARISON: No comparisons available. Technique: 2 views obtained. Findings: The lungs are clear, no effusion. No pneumothorax. Heart is normal size. Mediastinal and hilar contours are within normal limits. Left shoulder arthroplasty noted with deformity of the right humeral head with sequelae of previous intervention, correlate clinically Impression: No acute cardiopulmonary abnormality. Reviewed, dictated and finalized at location A. Impression: No acute cardiopulmonary abnormality.
--- NOTE | ~2025-03-26 | CT_ITS ---
EXAMINATION: CT brain wo rere, 03/26/2025 15:50 CDT HISTORY: Syncope COMPARISON: No comparisons available. Technique: Axial images obtained of the brain without contrast. One or more of the following dose reduction techniques were used: automated exposure control, adjustment of the mA and/or kV according to patient size, use of iterative reconstruction technique. Findings: No acute infarct or parenchymal hemorrhage. No abnormal mass or mass effect. No midline shift. No extra-axial fluid collections. No hydrocephalus. Mastoid air cells unremarkable. Sinuses and orbits unremarkable. No acute fracture. No significant facial or scalp soft tissue swelling evident. No radiopaque foreign body is seen. Impression: 1.No acute intracranial abnormality. Reviewed, dictated and finalized at location A. Impression: 1.No acute intracranial abnormality.
--- NOTE | ~2025-03-26 | MR_ITS ---
EXAMINATION: MR brain/brain stem wo/w con DATE: 03/27/2025 12:17 INDICATION: Seizure like activity TECHNIQUE: Magnetic resonance imaging (MRI) of the brain and brainstem was performed without and with 15 mL Multihance intravenous contrast. Sequences included sagittal and axial T1-weighted SE, axial diffusion-weighted FS SE, axial T2*-weighted GRE, axial T2-weighted FLAIR, and axial T2-weighted FSE. Postcontrast axial and coronal T1-weighted SE was obtained. Apparent diffusion coefficient (ADC) maps were created. COMPARISON: Head CT dated 03/26/2025 FINDINGS: There are no areas of restricted diffusion to suggest acute infarction. No intracranial hemorrhage or abnormal intracranial mass lesion. There are scattered areas of nonspecific increased T2-weighted signal intensity in the pontine and cerebral white matter. There are no intraparenchymal signal abnorma lities seen on the other pulse sequences. The ventricles are symmetric and normal in size. There are no abnormal extra-axial fluid collections. Flow voids are seen in the cerebral arteries on the T2-weighted sequences consistent with their expected patency. Changes of bilateral intraocular lens replacement. Visualized orbits and soft tissues are unremarkable. There are no areas of abnormal enhancement on the post contrast images. IMPRESSION: 1. Moderate nonspecific pontine and periventricular predominant cerebral white matter T2 hyperintensity consistent with chronic small vessel ischemic disease. Reviewed, dictated and finalized at location A.
--- NOTE | 2025-03-26 13:50 | ECG_ITS ---
Test Date: 2025-03-26 13:53:18 Measurements Intervals [place] Rate: 79 P: 37 CT: 166 QRS: 17 QRSD: 88 T: 58 QT: 381 QTc: 438 Interpretive Statements SINUS RHYTHM MODERATE VOLTAGE CRITERIA FOR LVH, CONSIDER NORMAL VARIANT [MEETS CRITERIA IN ONE OF: R(aVL), S(V1), R(V5), R(V5/V6)+S(V1)] NONSPECIFIC T-WAVE ABNORMALITY ABNORMAL ECG Compared to ECG 09/11/2024 15:53:25 T-wave abnormality now present Electronically Signed On 03-27-2025 09:33:09 CDT by Regan Merino M.D.
[2025-03-26 13:58] LABS: Hematocrit 41.7 % (37.0-47.0); Hemoglobin 13.6 g/dL (12.0-15.0); Immature Granulocyte Percent A 0.1 % (0-0.5); Lymphocytes Absolute Auto 3.13 K/mm3 (0.9-3.2); Mean Corpuscular HGB Conc 32.6 g/dl (32-36); Mean Corpuscular Hemoglobin 30.6 pg (26-34); Mean Corpuscular Volume 93.7 fl (80-100); Nucleated Red Blood Cells Absolute Auto 0.000 K/mm3 (0.0-0.012); Nucleated Red Blood Cells Perc 0.0 % (0.0-0.2); Platelet Count Result 288 k/mm3 (150-375); Red Blood Count 4.45 M/mm3 (4.2-5.4); White Blood Count 7.7 K/mm3 (4.5-10.0)
[2025-03-26 14:16] LABS: Alanine Aminotransferase 36 U/L (6-35); Albumin Level 4.3 g/dL (3.5-5.1); Alkaline Phosphatase 126 U/L (38-126); Anion Gap 11 mmol/L (4-12); Aspartate Amino Transferase 45 U/L (14-36); Bilirubin,Total 0.4 mg/dL (0.2-1.3); Blood Urea Nitrogen 13 mg/dL (7-17); Calcium 9.2 mg/dL (8.4-10.2); Carbon Dioxide 23 mmol/L (22-30); Chloride 104 mmol/L (98-107); Estimated CRCL calculation 48 ml/min; Estimated Glomerular Filt Rate 59; Glucose 76 mg/dL (65-110); Potassium 3.8 mmol/L (3.4-5.0); Sodium 138 mmol/L (137-145); Total Protein 8.6 g/dL (6.3-8.2)
--- NOTE | 2025-03-26 14:41 | ED.SYNCOPE ---
HPI - Syncope General Chief Complaint: Syncope Stated Complaint: syncopal Time Seen by Provider: 03/26/25 14:39 Source: patient and EMS Mode of arrival: EMS History of Present Illness HPI narrative: 69 years old white female came to the ED by ambulance from home with syncope Patient was trying to get up to go to the bathroom, requested her help because she was having tremors at that time, in the bathroom before sitting on the toilet went down to the floor, assisted by her and was unresponsive for 10 minutes, eyes with closed, no foaming from the mouth, did not bite her tongue, urinary incontinence. Last seizure medication over 35 years ago, history of tremors of unknown etiology, history of weakness left lower extremity status post lower back surgery October 2024 with slight improvement of the left lower extremity, patient smokes cigarettes, does not drink alcohol or use drugs MD complaint: loss of consciousness Related Data Home Medications ?Medication ?Instructions ?Recorded ?Confirmed ?Last Taken ?Type amlodipine 5 mg tablet (Norvasc) 5 mg PO DAILY 09/11/24 09/11/24 Unknown History aspirin 81 mg capsule 81 mg PO DAILY 09/11/24 09/11/24 Unknown History cholecalciferol (vitamin D3) 125 15,000 unit PO WEEKLY 09/11/24 09/12/24 Unknown History mcg (5,000 unit) capsule gabapentin 800 mg tablet 800 mg PO HS 09/11/24 09/11/24 Unknown History hydrochlorothiazide 12.5 mg tablet 12.5 mg PO DAILY 09/11/24 09/11/24 Unknown History ibuprofen 800 mg tablet 800 mg PO Q6H 09/11/24 09/11/24 Unknown History ixekizumab 80 mg/mL subcutaneous 80 mg subcut ONCE 09/11/24 09/11/24 Unknown History auto-injector (Taltz Autoinjector) losartan 100 mg tablet (Cozaar) 100 mg PO DAILY 09/11/24 09/11/24 Unknown History rosuvastatin 40 mg tablet (Crestor) 40 mg PO DAILY 09/11/24 09/11/24 Unknown History tizanidine 4 mg capsule 4 mg PO HS 09/11/24 09/11/24 Unknown History tramadol 50 mg tablet 50 mg PO .am 09/11/24 09/11/24 09/11/24 History tramadol 50 mg tablet 50 mg PO Q6-8H PRN pain 09/11/24 09/11/24 Unknown History hydroxychloroquine 200 mg tablet 200 mg PO DAILY 09/12/24 09/12/24 Unknown History (Plaquenil) Allergies Allergy/AdvReac Type Severity Reaction Status Date / Time Sulfa (Sulfonamide Allergy Severe Anaphylaxis Verified 03/26/25 13:51 Antibiotics) Review of Systems Review of Systems: All systems reviewed & are unremarkable except as noted in HPI and below PMFSH Past Medical History Medical History (Updated 03/26/25 @ 17:18 by Marcial Thibodeaux MD) Rheumatoid arthritis Transient ischemic attack Peripheral neuropathy Tobacco dependence Hyperlipidemia Hypertension Surgical History Surgical History (Updated 09/11/24 @ 22:59 by Larisa Pickering PA-C) History of arthroplasty of both shoulders History of lumbar fusion History of cervical spinal surgery Social History Social History (Updated 09/11/24 @ 23:00 by Larisa Pickering PA-C) Social History: Surrogate medical decision maker: Tacho Westbrook, spouse. Code status: Full code. Smoking packs per day: 0.5 Smoking cigarettes per day: 10.0 Years smoked: 30 Smoking pack-years: 15.00 Smoking status: Current every day smoker Tobacco type: cigarettes Second hand tobacco smoke exposure: Yes Alcohol intake: current Substance use: current Do You Feel Safe in your Home?: Yes Lack of Transportation: No Lack of Food: Never True Current Housing: I Have Housing Concerned About Future Housing: No Difficulty Paying Gas/Electric Bills: No Difficulty Paying for Meds: No Currently Unemployed: No Education: Associate Degree Difficulty w/ Childcare or Family Care: No Additional living arrangements comments: Lives with spouse. 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 Spiritual care concerns: No Exam Narrative: GENERAL APPEARANCE: WELL-DEVELOPED, WELL-NOURISHED, LOOKS CONFUSED, TIRED SKIN: NORMAL COLOR HEAD: NORMOCEPHALIC, NONTRAUMATIC EYES: CLEAR CONJUNCTIVA ENT: OROPHARYNX NORMAL, EARS NORMAL, NOSE NORMAL NECK: SUPPLE, NONTENDER CHEST AND RESPIRATORY: AIRWAY PATENT, NO RESPIRATORY DISTRESS, NO ACCESSORY MUSCLE USE, RIGHT BREAST MASS MEDIALLY HEART: REGULAR RATE/RHYTHM ABDOMEN: SOFT, NONTENDER, NO ORGANOMEGALY, QUIET BOWEL SOUNDS VASCULAR: NORMAL PERIPHERAL PULSES, NORMAL CAPILLARY REFILL. MUSCULOSKELETAL: NORMAL RANGE OF MOTION, NONTENDER BACK, WEAKNESS LEFT LOWER EXTREMITY 1/5 MOTOR, 2/5 SENSORY NEUROLOGIC: ALERT AND DISORIENTED HER AGE ONLY, WEAKNESS LEFT LOWER EXTREMITY, TREMORS WHEN TRYING TO SIT PATIENT FROM LAYING DOWN POSITION Course Consultations Consultation #1: DR PAUL ADMIT TO HOSPITALIST Vital Signs Vital signs: Vital Signs Temperature 36.9 C 03/26/25 13:48 Pulse Rate 81 03/26/25 13:48 Respiratory Rate 18 03/26/25 13:48 Blood Pressure 192/91 H 03/26/25 13:48 Pulse Oximetry 96 03/26/25 13:48 Oxygen Delivery Room Air 03/26/25 13:48 Temperature 36.9 C 03/26/25 13:48 Pulse Rate 70 03/26/25 16:53 Respiratory Rate 18 03/26/25 16:53 Blood Pressure 184/91 H 03/26/25 16:53 Pulse Oximetry 99 03/26/25 16:53 Oxygen Delivery Room Air 03/26/25 13:48 MDM - Syncope MDM Narrative Medical decision making narrative: PATIENT CAME TO THE ED FROM HOME BY AMBULANCE WITH SYNCOPE, POSSIBLE SEIZURE LIKE ACTIVITY. VITAL SIGNS SHOWING BLOOD PRESSURE 192/91 OTHERWISE WITHIN NORMAL LIMIT PHYSICAL EXAMINATION SHOWING THAT THE PATIENT IS DISORIENTED TO HER AGE ONLY, LOOKS SLIGHTLY CONFUSED AND SLOWLY ANSWERING QUESTIONS, RIGHT BREAST MASS, LEFT LOWER EXTREMITY WEAKNESS DIFFERENTIAL DIAGNOSIS SEIZURE-LIKE ACTIVITY, HYPERTENSIVE ENCEPHALOPATHY, ELECTROLYTE IMBALANCE, DEHYDRATION, URINARY TRACT INFECTION BLOOD WORKUP TODAY INCLUDES CBC, CMP, TROPONIN SHOWED INSIGNIFICANT ABNORMALITY CHEST X-RAY SHOWED NO ACUTE ABNORMALITY CT HEAD WITHOUT CONTRAST SHOWED NO ACUTE ABNORMALITY Differential Diagnosis Differential diagnosis: Likely other ( ABOVE) Medical Records Attestation: I reviewed the patient's medical records. Lab Data Attestation: I reviewed the patient's lab results. 03/26/25 13:52 03/26/25 13:52 Labs: Lab Results 03/26/25 03/26/25 03/26/25 Range/Units 13:49 13:52 14:25 WBC 7.7 (4.5-10.0) K/mm3 RBC 4.45 (4.2-5.4) M/mm3 Hgb 13.6 (12.0-15.0) g/dL Hct 41.7 (37.0-47.0) % MCV 93.7 (80-100) fl MCH 30.6 (26-34) pg MCHC 32.6 (32-36) g/dl RDW 19.5 H (11.5-14.5) % Plt Count 288 (150-375) k/mm3 MPV 10.1 (7.4-10.4) fl Immature Gran % (Auto) 0.1 (0-0.5) % Neut % (Auto) 40.5 L (45.5-73.1) % Lymph % (Auto) 40.6 (18.3-44.2) % [place] % (Auto) 9.6 H (2.6-8.5) % Eos % (Auto) 8.6 H (0-4.4) % Baso % (Auto) 0.6 (0.2-1.2) % Lymph # (Auto) 3.13 (0.9-3.2) K/mm3 [place] # (Auto) 0.7 H (0.1-0.6) K/mm3 Eos # (Auto) 0.7 H (0-0.3) K/mm3 Baso # (Auto) 0.1 (0.0-0.1) K/mm3 Abs Immat Gran (auto) 0.01 (0.00-0.031) K/mm3 Absolute Neuts (auto) 3.1 (1.3-6.7) K/mm3 Absolute Nucleated RBC 0.000 (0.0-0.012) K/mm3 Nucleated RBC % 0.0 (0.0-0.2) % Sodium 138 (137-145) mmol/L Potassium 3.8 (3.4-5.0) mmol/L Chloride 104 (98-107) mmol/L Carbon Dioxide 23 (22-30) mmol/L Anion Gap 11 (4-12) mmol/L BUN 13 (7-17) mg/dL Creatinine 0.94 (0.7-1.0) mg/dL Estim Creat Clear Calc 48 ml/min Estimated GFR 59 (59 - ) Glucose 76 (65-110) mg/dL POC Capillary Glucose 79 95 (65-105) mg/dl Calcium 9.2 (8.4-10.2) mg/dL Total Bilirubin 0.4 (0.2-1.3) mg/dL AST 45 H (14-36) U/L ALT 36 H (6-35) U/L Alkaline Phosphatase 126 (38-126) U/L Total Protein 8.6 H (6.3-8.2) g/dL Albumin 4.3 (3.5-5.1) g/dL Imaging Data Radiologist's impression: Impressions Chest X-Ray 03/26/25 14:54 Impression: No acute cardiopulmonary abnormality. Head CT 03/26/25 16:29 Impression: 1.No acute intracranial abnormality. ECG Data EKG #1: Attestation: I personally reviewed and interpreted this ECG as follows: ECG completion date: 03/26/25 Interpretation: NORMAL SINUS RHYTHM AT 79 BEATS PER MINUTE, NONSPECIFIC T-WAVE ABNORMALITY, COMPARED TO EKG ON SEPTEMBER 11, 2024 T-WAVE ABNORMALITY NOW PRESENT Critical Care Time Critical Care Time Critical Care Time: Yes Total Critical Care Time: 30 Discharge Plan Discharge Clinical Impression: Hypertension, Syncope, Breast mass, right, Seizure-like activity Patient Disposition: Still a Patient Condition: Stable Patient Language: Kyrgyz Prescriptions: No Action gabapentin 800 mg tablet 800 mg PO HS tizanidine 4 mg capsule 4 mg PO HS tramadol 50 mg tablet 50 mg PO Q6-8H PRN (Reason: pain) tramadol 50 mg tablet 50 mg PO .am amlodipine [Norvasc] 5 mg tablet 5 mg PO DAILY rosuvastatin [Crestor] 40 mg tablet 40 mg PO DAILY ibuprofen 800 mg tablet 800 mg PO Q6H aspirin 81 mg capsule 81 mg PO DAILY losartan [Cozaar] 100 mg tablet 100 mg PO DAILY hydrochlorothiazide 12.5 mg tablet 12.5 mg PO DAILY Taltz Autoinjector 80 mg/mL auto-injector 80 mg subcut ONCE Patient Comments: Pt takes q4wks due tomorrow will bring dose cholecalciferol (vitamin D3) 125 mcg (5,000 unit) capsule 15,000 unit PO WEEKLY Patient Comments: due tomorrow hydroxychloroquine [Plaquenil] 200 mg tablet 200 mg PO DAILY Follow-up/Referrals: PHYSICIAN NOT ON STAFF,NONSTAFF [Primary Care Provider] Quality Stroke Scale Stroke Scale 1: Stroke scale date:: 03/26/25 1a Level of consciousness: alert-0 1b Level of consciousness questions: answers both correctly-0 1c Level of consciousness commands: obeys both correctly-0 2 Best gaze: normal-0 3 Visual: no visual loss-0 4 Facial palsy: normal-0 5a Motor: left arm: no drift-0 5b Motor: right arm: no drift-0 6a Motor: left leg: no effort/gravity-3 6b Motor: right leg: no drift-0 7 Limb ataxia: present in one limb-1 8 Sensory: pinprick less sharp-1 9 Best language: no aphasia-0 10 Dysarthria: normal-0 11 Extinction and inattention: no abnormality-0 Level:: 5
[2025-03-26] MEDS: levETIRAcetam 1500MG/NACL100ML 1,500 MG/100 ML BAG 400 MG IVPB (16:53)
[2025-03-26] MEDS: ONDANSETRON INJ 4 MG/2 ML VIAL IV PUSH (17:17)
[2025-03-26] MEDS: MORPHINE SULFATE (*CRX) 4 MG/ML INJ IV PUSH (17:18)
[2025-03-26 18:06] LABS: Add Urine Microscopic? YES; Appearance Urine Clear (Clear); Glucose Urine UA Negative (Negative); Leukocyte Esterase Ur Negative LEU/UL (Negative); Nitrate Urine Negative (Negative); Specific Grav Ur 1.013 (1.001-1.035)
[2025-03-26] MEDS: ACETAMINOPHEN 325 MG TABLET 650 MG PO (19:28)
--- NOTE | 2025-03-26 19:30 | ADMGEN ---
This patient, Arlin Hartman, was admitted to Medical Room 248-. Patient/family oriented to hospital policies and general routines including ID bracelet, bed and alarms, visiting hours, pain management, procedures, bathroom and other care routines, personal items, smoking policy, room service/diet, and visiting hours. Information on how to activate the Rapid Response Team has been discussed. Patient/Family are encouraged to report perceived risks to care and to ask questions if they do not understand what they are told or what they should do.
--- NOTE | 2025-03-26 19:56 | PM.IMHP ---
H&P: HPI History of Present Illness Date/Time: 03/26/25 19:56 Chief Complaint: Syncopal Episode Narrative: 69 y/o F with PMH of RA, TIA, HLD, HTN, and distant history of seizures (over 35 years ago, off medications) presents here with suspected syncopal episode. The patient presents here from home via EMS for further evaluation of syncope. The following history was provided by the patient and her . They report that the patient was getting up to go to the bathroom when she asked for her 's help. She has a history of tremors of unknown etiology, has been ongoing for some years. She was having tremors at the time which is what prompted her to ask for help. Prior to sitting on the toilet she had a syncopal episode and her was able to catch her and lower her to the ground. He reports she was awake and responsive at that time and wanted to use her walker to get up instead of being pulled up. However every time he tried to let go to go get the walker she would fall backwards. Patient then went unresponsive and tensed up arching her back. No tonic clonic movements noted. He estimates she was unresponsive for 10 minutes (around time they called the ambulance to their arrival). Upon EMS arrival, the patient was found to be confused (A&Ox2-3) and slow to respond. She was found to be hypoglycemic with a glucose of 57. She was given oral dextrose which increased her blood sugar to 75. She denies history of diabetes and she is not currently on anti diabetic medications. She was additionally found to be hypertensive with a systolic in the 200s, has history of hypertension. She reports a distant history of seizures and was on medication for this a long time ago, last took seizure medications approximately 35 years ago. Patient additionally has chronic left lower extremity weakness s/p back surgery in October 2024. Initial VS at presentation: 98.4? F, HR 81, R 18, 192/91, and 96% on RA. ED workup showed: No leukocytosis, no anemia, no significant electrolyte derangements, glucose 79, and UA showed 1+ protein otherwise were unremarkable. CXR showed no acute cardiopulmonary abnormality. Head CT showed no acute intracranial abnormality. Review of Systems Review of Systems: All systems reviewed & are unremarkable except as noted in HPI and below [facility] Past Medical History Medical History Hypertension Endometriosis History of shingles Fatty liver Rheumatoid arthritis Transient ischemic attack Peripheral neuropathy Tobacco dependence Hyperlipidemia Surgical History Surgical History History of appendectomy History of arthroplasty of both shoulders History of lumbar fusion History of cervical spinal surgery Social History Social History Social History: Surrogate medical decision maker: Tacho Westbrook, spouse. Code status: Full code. Smoking packs per day: 0.5 Smoking cigarettes per day: 10.0 Years smoked: 50 Smoking pack-years: 25.00 Smoking status: Current every day smoker Tobacco type: cigarettes Second hand tobacco smoke exposure: Yes Alcohol intake: current Substance use: current Do You Feel Safe in your Home?: Yes Lack of Transportation: No Lack of Food: Never True Current Housing: I Have Housing Concerned About Future Housing: No Difficulty Paying Gas/Electric Bills: No Difficulty Paying for Meds: No Currently Unemployed: No Education: Associate Degree Difficulty w/ Childcare or Family Care: No Additional living arrangements comments: Lives with spouse. 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 Spiritual care concerns: No Meds Home Medications and Allergies Home Medications ?Medication ?Instructions ?Recorded ?Confirmed ?Type amlodipine 5 mg tablet (Norvasc) 5 mg PO DAILY 09/11/24 03/26/25 History aspirin 81 mg capsule 81 mg PO DAILY 09/11/24 03/26/25 History cholecalciferol (vitamin D3) 125 15,000 unit PO WEEKLY 09/11/24 03/26/25 History mcg (5,000 unit) capsule hydrochlorothiazide 12.5 mg tablet 12.5 mg PO DAILY 09/11/24 03/26/25 History ibuprofen 800 mg tablet 800 mg PO Q6H PRN pain 09/11/24 03/26/25 History ixekizumab 80 mg/mL subcutaneous 80 mg subcut ONCE 09/11/24 03/26/25 History auto-injector (Taltz Autoinjector) losartan 100 mg tablet (Cozaar) 100 mg PO DAILY 09/11/24 03/26/25 History rosuvastatin 40 mg tablet (Crestor) 40 mg PO HS 09/11/24 03/26/25 History tizanidine 4 mg capsule 4 mg PO HS 09/11/24 03/26/25 History tramadol 50 mg tablet 50 mg PO .am 09/11/24 03/26/25 History tramadol 50 mg tablet 50 mg PO Q6-8H PRN pain 09/11/24 03/26/25 History hydroxychloroquine 200 mg tablet 200 mg PO DAILY 09/12/24 03/26/25 History (Plaquenil) gabapentin 300 mg capsule 900 mg PO TID 03/26/25 03/26/25 History Allergies Allergy/AdvReac Type Severity Reaction Status Date / Time Sulfa (Sulfonamide Allergy Severe Anaphylaxis Verified 03/26/25 13:51 Antibiotics) Vital Signs Vital Signs - 24 hr 03/26/25 13:48 03/26/25 14:26 03/26/25 14:26 Temperature 98.4 F Pulse Rate 81 72 73 Respiratory Rate 18 14 Blood Pressure 192/91 H 184/83 H Pulse Oximetry 96 97 Oxygen Delivery Room Air 03/26/25 15:23 03/26/25 16:29 03/26/25 16:53 Temperature Pulse Rate 74 64 70 Respiratory Rate 18 16 18 Blood Pressure 202/95 H 183/78 H 184/91 H Pulse Oximetry 98 98 99 Oxygen Delivery 03/26/25 17:53 03/26/25 18:13 03/26/25 18:36 Temperature 97.9 F 97.0 F L Pulse Rate 65 63 64 Respiratory Rate 15 20 14 Blood Pressure 172/85 H 164/75 H 169/76 H Pulse Oximetry 97 97 100 Oxygen Delivery Exam Const: General: comfortable and no acute distress HENMT: Face/Nose/Sinus: Normal nares present Mouth: Yes moist mucous membranes Eyes: General: appearance normal, both eyes and all related structures Sclera: sclerae normal Pupils: Equal, round and reactive pupils present EOM: EOMs intact bilaterally Resp: Effort & Inspection: normal respiratory effort Auscultation: clear to auscultation bilaterally Cardio: Rate: regular rate Rhythm: regular rhythm Other: S1-S2 present without murmur, rub, ectopy GI: Other: Abdomen soft, nondistended, nontender. Normoactive bowel sounds in all quadrants. Skin: General skin exam: normal color and no rashes or lesions noted Wounds: no wounds Neuro: Speech: normal speech Sensory Exam: normal sensation Other: Patient with slow speech matt, intermittent confusion noted by , however A&O x4. Left lower extremity weakness noted, chronic for patient. EOM intact. No facial droop. No dysarthria. Extrem: General: normal to inspection Psych: Mental Status: mental status grossly normal Affect: normal affect Other: Fair insight and judgment at present, pleasant H&P: Results Labs Labs: Short CBC 03/26/25 Range/Units 13:52 WBC 7.7 (4.5-10.0) K/mm3 Hgb 13.6 (12.0-15.0) g/dL Hct 41.7 (37.0-47.0) % Plt Count 288 (150-375) k/mm3 BMP 03/26/25 13:52 Sodium 138 Potassium 3.8 Chloride 104 Carbon Dioxide 23 BUN 13 Creatinine 0.94 Glucose 76 Calcium 9.2 Liver Function 03/26/25 Range/Units 13:52 Total Bilirubin 0.4 (0.2-1.3) mg/dL AST 45 H (14-36) U/L ALT 36 H (6-35) U/L Alkaline Phosphatase 126 (38-126) U/L Albumin 4.3 (3.5-5.1) g/dL Urine 03/26/25 Range/Units 17:26 Urine Color Yellow (Yellow) Urine Appearance Clear (Clear) Urine pH 5.5 (5.0-9.0) Ur Specific [place] 1.013 (1.001-1.035) Urine Protein 1+ H (Negative) mg/dL Urine Glucose (UA) Negative (Negative) mg/dL Assessment and Plan Assessment and plan (1) Syncope: Qualifiers: Syncope type: unspecified Qualified Code(s): R55 - Syncope and collapse Code(s): R55 - Syncope and collapse Status: Acute Assessment and Plan: Patient presents here with syncopal episode at home. No trauma sustained. estimates she was unconscious for approximately 10 minutes. Upon EMS arrival, the patient was sent to be hypoglycemic in the 50s. She was given glucagon and her blood sugar increased into the 70s. She has a distant history of seizures, has been off of medications for the past 35 years. Upon ED evaluation, patient disoriented to age only. Preop med no leukocytosis, UA was unremarkable, CXR not concerning for infection, and head CT unremarkable. EKG showed sinus rhythm, rate 79. - neurology consulted - given Keppra 1500 mg in the ED, continued on all Keppra 750 mg b.i.d. - seizure precautions - hypoglycemia protocol and q.6 Accu-Cheks - MR brain - check TSH, B12, folate (2) Hypoglycemia: Code(s): E16.2 - Hypoglycemia, unspecified Status: Acute Assessment and Plan: Glucose 57 upon EMS arrival, given or glucagon and increases 75. Seventy-nine upon arrival to the emergency department. - previous lab work reviewed, A1c 6.8% on 09/11/2024. Update. - home medications reviewed, patient is not on any antidiabetic medications - q.6 Accu-Cheks - hypoglycemia protocol (3) Hyperlipidemia: Qualifiers: Hyperlipidemia type: unspecified Qualified Code(s): E78.5 - Hyperlipidemia, unspecified Code(s): E78.5 - Hyperlipidemia, unspecified Status: Chronic Assessment and Plan: - continue home rosuvastatin (4) Hypertension: Qualifiers: Hypertension type: primary hypertension Qualified Code(s): I10 - Essential (primary) hypertension Code(s): I10 - Essential (primary) hypertension Status: Chronic Assessment and Plan: - chronic, currently 169/76 - continue home medications: Amlodipine, hydrochlorothiazide, losartan - monitor Plan Diet: Heart healthy GI Prophylaxis: In/a DVT Prophylaxis: SCDs IV fluids: None Lines/Tubes: Peripheral IV Code Status: Full code Quality VTE Prophylaxis VTE prophylaxis: mechanical ordered Hospitalist MIPS Advance Care Plan I have confirmed that the patient's Advanced Care Plan is present, code status is documented, or surrogate decision maker is listed in patient medical record.: Yes Medication Reconciliation I have utilized all available resources to obtain, update and review the patients current medications (includes all prescriptions, OTC, herbals, cannabis, and nutritional supplements).: Yes
[2025-03-26] MEDS: GABAPENTIN 300 MG CAPSULE 900 MG PO (20:42)
[2025-03-26] MEDS: TIZANIDINE HCL 4 MG TABLET PO (20:42)
[2025-03-26] MEDS: levETIRAcetam Tablet 250 MG, levETIRAcetam Tablet 500 MG 750 MG PO (20:42)
[2025-03-26] MEDS: ROSUVASTATIN 20 MG TABLET 40 MG PO (20:42)
[2025-03-26] MEDS: IBUPROFEN 400 MG TABLET 800 MG PO (20:42)
[2025-03-27] VITALS (10 sets, daily range): BP systolic 134–150; BP diastolic 50–65; PULSE 62–76; RESP 16–20; TEMP 36.4–37; O2SAT 97–100
[2025-03-27 05:18] LABS: Hematocrit 39.2 % (37.0-47.0); Hemoglobin 12.9 g/dL (12.0-15.0); Mean Corpuscular HGB Conc 32.9 g/dl (32-36); Mean Corpuscular Hemoglobin 30.9 pg (26-34); Mean Corpuscular Volume 93.8 fl (80-100); Platelet Count Result 277 k/mm3 (150-375); Red Blood Count 4.18 M/mm3 (4.2-5.4); White Blood Count 6.6 K/mm3 (4.5-10.0)
[2025-03-27 05:20] LABS: Hemoglobin A1C 6.7 % (<5.7)
[2025-03-27 05:36] LABS: Anion Gap 6 mmol/L (4-12); Blood Urea Nitrogen 18 mg/dL (7-17); Calcium 8.8 mg/dL (8.4-10.2); Carbon Dioxide 27 mmol/L (22-30); Chloride 103 mmol/L (98-107); Estimated CRCL calculation 34 ml/min; Estimated Glomerular Filt Rate 40; Glucose 95 mg/dL (65-110); Potassium 4.1 mmol/L (3.4-5.0); Sodium 136 mmol/L (137-145)
[2025-03-27 06:03] LABS: Thyroid Stimulating Hormone Reflex 0.347 uIU/mL (0.465-4.68)
[2025-03-27 06:09] LABS: Anisocytosis 1+; Band Neutrophils Percent 1 % (0-6); Eosinophils Absolute Manual 0.46 K/mm3 (0.02-0.50); Eosinophils Percent Manual 7 % (0-4); Lymphocytes Absolute Manual 2.70 K/mm3 (1.1-4.5); Lymphocytes Percent Manual 41.0 % (18-44); Monocytes Absolute Manual 0.33 K/mm3 (0.1-0.90); Monocytes Percent Manual 5 % (3-9); Neutrophils Absolute Manual 3.10 K/mm3 (1.3-6.7); Neutrophils Percent Manual 46 % (46-73); Total Cells Counted 100
[2025-03-27 06:10] LABS: Schistocytes None Seen
[2025-03-27 06:49] LABS: Vitamin B12 377.0 pg/mL (239-931)
[2025-03-27 07:21] LABS: Free T4 Free Thyroxine Reflex 1.16 ng/dL (0.78-2.19)
[2025-03-27] MEDS: ASPIRIN 81 MG CHEWABLE TABLET PO (09:52)
[2025-03-27] MEDS: HYDROXYCHLOROQUINE SULFATE 200 MG TABLET PO (09:52)
[2025-03-27] MEDS: LOSARTAN POTASSIUM 100 MG TABLET PO (09:52)
[2025-03-27] MEDS: levETIRAcetam Tablet 250 MG, levETIRAcetam Tablet 500 MG 750 MG PO ×2 (09:52→20:47)
[2025-03-27] MEDS: GABAPENTIN 300 MG CAPSULE 900 MG PO ×3 (09:52→17:33)
[2025-03-27] MEDS: ALPRAZolam (*CRX) 0.5 MG TABLET PO (09:53)
[2025-03-27] MEDS: traMADol HCL (*CRX) 50 MG TABLET PO (09:53)
[2025-03-27 10:34] LABS: Total Triiodothyronine (T3) 1.00 NG/ML (0.82-1.58)
--- NOTE | 2025-03-27 13:11 | P.PNIM_ITS ---
Progress Note: A&P Assessment and Plan (1) Syncope: Qualifiers: Syncope type: unspecified Qualified Code(s): R55 - Syncope and collapse Code(s): R55 - Syncope and collapse Status: Acute Assessment and Plan: Patient presents here with syncopal episode at home. No trauma sustained. estimates she was unconscious for approximately 10 minutes. Upon EMS arrival, the patient was sent to be hypoglycemic in the 50s. She was given glucagon and her blood sugar increased into the 70s. She has a distant history of seizures, has been off of medications for the past 35 years. Upon ED evaluation, patient disoriented to age only. Preop med no leukocytosis, UA was unremarkable, CXR not concerning for infection, and head CT unremarkable. EKG showed sinus rhythm, rate 79. - neurology consulted - given Keppra 1500 mg in the ED, continued on all Keppra 750 mg b.i.d. - seizure precautions - hypoglycemia protocol and q.6 Accu-Cheks - MR brain - check TSH, B12, folate (2) Hypoglycemia: Code(s): E16.2 - Hypoglycemia, unspecified Status: Acute Assessment and Plan: Glucose 57 upon EMS arrival, given or glucagon and increases 75. Seventy-nine upon arrival to the emergency department. - previous lab work reviewed, A1c 6.8% on 09/11/2024. Update. - home medications reviewed, patient is not on any antidiabetic medications - q.6 Accu-Cheks - hypoglycemia protocol (3) Hyperlipidemia: Qualifiers: Hyperlipidemia type: unspecified Qualified Code(s): E78.5 - Hyperlipidemia, unspecified Code(s): E78.5 - Hyperlipidemia, unspecified Status: Chronic Assessment and Plan: - continue home rosuvastatin (4) Hypertension: Qualifiers: Hypertension type: primary hypertension Qualified Code(s): I10 - Essential (primary) hypertension Code(s): I10 - Essential (primary) hypertension Status: Chronic Assessment and Plan: - chronic, currently 169/76 - continue home medications: Amlodipine, hydrochlorothiazide, losartan - monitor Plan patient with suspected seizures activities has bee started on Keppara, stats feel better, has not had any seizures since arrival, patient had MRI earlier today pending results, I did order EEG and cardiac ECHO for further evaluation, consulted neurologist, will monitor and plan, patient and daughter are present in the room gave updates. Diet: Heart healthy GI Prophylaxis: In/a DVT Prophylaxis: SCDs IV fluids: None Lines/Tubes: Peripheral IV Code Status: Full code Subjective Date/time seen: 03/27/25 13:11 Interval history: Syncopal Episode H&P-Narrative: 69 y/o F with PMH of RA, TIA, HLD, HTN, and distant history of seizures (over 35 years ago, off medications) presents here with suspected syncopal episode. The patient presents here from home via EMS for further evaluation of syncope. The following history was provided by the patient and her . They report that the patient was getting up to go to the bathroom when she asked for her 's help. She has a history of tremors of unknown etiology, has been ongoing for some years. She was having tremors at the time which is what prompted her to ask for help. Prior to sitting on the toilet she had a syncopal episode and her was able to catch her and lower her to the ground. He reports she was awake and responsive at that time and wanted to use her walker to get up instead of being pulled up. However every time he tried to let go to go get the walker she would fall backwards. Patient then went unresponsive and tensed up arching her back. No tonic clonic movements noted. He estimates she was unresponsive for 10 minutes (around time they called the ambulance to their arrival). Upon EMS arrival, the patient was found to be confused (A&Ox2-3) and slow to respond. She was found to be hypoglycemic with a glucose of 57. She was given oral dextrose which increased her blood sugar to 75. She denies history of diabetes and she is not currently on anti diabetic medications. She was additionally found to be hypertensive with a systolic in t he 200s, has history of hypertension. She reports a distant history of seizures and was on medication for this a long time ago, last took seizure medications approximately 35 years ago. Patient additionally has chronic left lower extremity weakness s/p back surgery in October 2024. patient with suspected seizures activities has bee started on Keppara, stats feel better, has not had any seizures since arrival, patient had MRI earlier today pending results, I did order EEG and cardiac ECHO for further evaluation, consulted neurologist, will monitor and plan, patient and daughter are present in the room gave updates. Review of Systems Review of Systems: All systems reviewed & are unremarkable except as noted in HPI and below Exam Narrative: Patient is comfortable, NAD HEENT: eyes are clear and none icteric LUNGS:CTA HEART: RR S1S2 ABD: BS+, Soft and nontender Lower extremities: no edema SKIN: nonjaundiced Neuro: grossly intact. Objective Data Vital Signs Vital Signs: Vital Signs - 24 hr 03/26/25 13:48 03/26/25 14:26 03/26/25 14:26 Temperature 36.9 C Pulse Rate 81 72 73 Respiratory Rate 18 14 Blood Pressure 192/91 H 184/83 H Pulse Oximetry 96 97 Oxygen Delivery Room Air 03/26/25 15:23 03/26/25 16:29 03/26/25 16:53 Temperature Pulse Rate 74 64 70 Respiratory Rate 18 16 18 Blood Pressure 202/95 H 183/78 H 184/91 H Pulse Oximetry 98 98 99 Oxygen Delivery 03/26/25 17:53 03/26/25 18:13 03/26/25 18:36 Temperature 36.6 C 36.1 C L Pulse Rate 65 63 64 Respiratory Rate 15 20 14 Blood Pressure 172/85 H 164/75 H 169/76 H Pulse Oximetry 97 97 100 Oxygen Delivery 03/26/25 20:00 03/26/25 20:00 03/26/25 20:25 Temperature 36.6 C Pulse Rate 66 62 Respiratory Rate 12 Blood Pressure 161/66 H Pulse Oximetry 100 Oxygen Delivery Room Air 03/27/25 00:00 03/27/25 04:00 03/27/25 05:48 Temperature 36.4 C L Pulse Rate 62 64 69 Respiratory Rate 16 Blood Pressure 134/52 L Pulse Oximetry 100 Oxygen Delivery Intake/Output Intake/Output: Intake & Output 03/24/25 03/25/25 03/26/25 03/27/25 23:59 23:59 23:59 23:59 Intake Total 100 290 Balance 100 290 Meds/Results Medications: Active Medications Generic Name Dose Route Start Last Admin Trade Name Freq PRN Reason Stop Dose Admin Acetaminophen 650 mg 03/26/25 17:37 03/26/25 19:28 Acetaminophen 325 Mg Tablet PO 650 mg Q4H PRN Administration Mild Pain (1-3) or Fever Alprazolam 0.5 mg 03/27/25 09:32 03/27/25 09:53 Alprazolam (*Crx) 0.5 Mg Tablet PO 0.5 mg ONCE PRN Administration Anxiety Amlodipine Besylate 5 mg 03/27/25 09:00 03/27/25 09:53 Amlodipine Besylate 5 Mg Tablet PO 5 mg DAILY MERCEDEZ Administration Aspirin 81 mg 03/27/25 09:00 03/27/25 09:52 Aspirin 81 Mg Chewable Tablet PO 81 mg DAILY MERCEDEZ Administration Dextrose 12.5 gm 03/26/25 20:16 Dextrose 50% 25 Gm/50 Ml Syringe IV PUSH PRN PRN Hypoglycemia Protocol Gabapentin 900 mg 03/26/25 20:30 03/27/25 09:52 Gabapentin 300 Mg Capsule PO 900 mg TID MERCEDEZ Administration Glucagon 1 mg 03/26/25 20:16 Glucagon For Inj 1 Mg Vial IM PRN PRN Hypoglycemia Protocol Glucose 15 gm 03/26/25 20:16 Glucose Oral Gel 15 Gm Of Glucse In 37.5 Gm Tube PO PRN PRN Hypoglycemia Protocol Hydrochlorothiazide 12.5 mg 03/27/25 09:00 03/27/25 09:52 Hydrochlorothiazide 12.5 Mg Capsule PO 12.5 mg DAILY MERCEDEZ Administration Hydroxychloroquine Sulfate 200 mg 03/27/25 09:00 03/27/25 09:52 Hydroxychloroquine Sulfate 200 Mg Tablet PO 200 mg DAILY MERCEDEZ Administration Dextrose 1,000 mls @ 100 mls/hr 03/26/25 20:16 Dextrose 5% 1,000 Ml IVPB PRN PRN Hypoglycemia Protocol Ibuprofen 800 mg 03/26/25 20:29 03/26/25 20:42 Ibuprofen 400 Mg Tablet PO 800 mg Q6H PRN Administration Pain Rated 4-6 Levetiracetam 250 mg/ 750 mg 03/26/25 21:00 03/27/25 09:52 Levetiracetam 500 mg PO 750 mg Q12HR MERCEDEZ Administration Losartan Potassium 100 mg 03/27/25 09:00 03/27/25 09:52 Losartan Potassium 100 Mg Tablet PO 100 mg DAILY MERCEDEZ Administration Rosuvastatin Calcium 40 mg 03/26/25 21:00 03/26/25 20:42 Rosuvastatin 20 Mg Tablet PO 40 mg HS MERCEDEZ Administration Tizanidine HCl 4 mg 03/26/25 21:00 03/26/25 20:42 Tizanidine Hcl 4 Mg Tablet PO 4 mg HS MERCEDEZ Administration Tramadol HCl 50 mg 03/27/25 09:00 03/27/25 09:53 Tramadol Hcl (*Crx) 50 Mg Tablet PO 50 mg QAM [facility] Administration Tramadol HCl 50 mg 03/26/25 20:18 Tramadol Hcl (*Crx) 50 Mg Tablet PO Q6-8H PRN PAIN RATED 7-10 Vitamin D 375 mcg 04/03/25 09:00 Cholecalciferol (Vitamin D3) 125 Mcg (5,000 Units) Tablet PO Ag@0900 [facility] Radiology Results: ITS Impressions Chest X-Ray 03/26/25 14:54 Impression: No acute cardiopulmonary abnormality. Head CT 03/26/25 16:29 Impression: 1.No acute intracranial abnormality. Labs Labs: Laboratory Results - last 24 hr 03/26/25 03/26/25 03/26/25 13:49 13:52 14:25 WBC 7.7 RBC 4.45 Hgb 13.6 Hct 41.7 MCV 93.7 MCH 30.6 MCHC 32.6 RDW 19.5 H Plt Count 288 MPV 10.1 Immature Gran % (Auto) 0.1 Neut % (Auto) 40.5 L Lymph % (Auto) 40.6 [place] % (Auto) 9.6 H Eos % (Auto) 8.6 H Baso % (Auto) 0.6 Lymph # (Auto) 3.13 [place] # (Auto) 0.7 H Eos # (Auto) 0.7 H Baso # (Auto) 0.1 Abs Immat Gran (auto) 0.01 Absolute Neuts (auto) 3.1 Absolute Nucleated RBC 0.000 Total Counted Neutrophils % (Manual) Band Neutrophils % Lymphocytes % (Manual) Monocytes % (Manual) Eosinophils % (Manual) Nucleated RBC % 0.0 Abs Neuts (Manual) Abs Lymphs (Manual) Abs Monocytes (Manual) Absolute Eos (Manual) Atypical Lymphocytes Platelet Estimate Anisocytosis Schistocytes Sodium 138 Potassium 3.8 Chloride 104 Carbon Dioxide 23 Anion Gap 11 BUN 13 Creatinine 0.94 Estim Creat Clear Calc 48 Estimated GFR 59 Glucose 76 POC Capillary Glucose 79 95 Hemoglobin A1c Calcium 9.2 Total Bilirubin 0.4 AST 45 H ALT 36 H Alkaline Phosphatase 126 Total Protein 8.6 H Albumin 4.3 Vitamin B12 Folate TSH (Reflex) Free T4 Total T3 Urine Color Urine Appearance Urine pH Ur Specific [place] Urine Protein Urine Glucose (UA) Urine Ketones Ur Blood (Man) Urine Nitrate Urine Bilirubin Urine Urobilinogen Leukocyte Esterase Rfl Urine RBC Urine WBC Ur Squamous Epith Cells Urine Bacteria Urine Casts 03/26/25 03/26/25 03/27/25 17:26 18:13 00:08 WBC RBC Hgb Hct MCV MCH MCHC RDW Plt Count MPV Immature Gran % (Auto) Neut % (Auto) Lymph % (Auto) [place] % (Auto) Eos % (Auto) Baso % (Auto) Lymph # (Auto) [place] # (Auto) Eos # (Auto) Baso # (Auto) Abs Immat Gran (auto) Absolute Neuts (auto) Absolute Nucleated RBC Total Counted Neutrophils % (Manual) Band Neutrophils % Lymphocytes % (Manual) Monocytes % (Manual) Eosinophils % (Manual) Nucleated RBC % Abs Neuts (Manual) Abs Lymphs (Manual) Abs Monocytes (Manual) Absolute Eos (Manual) Atypical Lymphocytes Platelet Estimate Anisocytosis Schistocytes Sodium Potassium Chloride Carbon Dioxide Anion Gap BUN Creatinine Estim Creat Clear Calc Estimated GFR Glucose POC Capillary Glucose 118 H 96 Hemoglobin A1c Calcium Total Bilirubin AST ALT Alkaline Phosphatase Total Protein Albumin Vitamin B12 Folate TSH (Reflex) Free T4 Total T3 Urine Color Yellow Urine Appearance Clear Urine pH 5.5 Ur Specific [place] 1.013 Urine Protein 1+ H Urine Glucose (UA) Negative Urine Ketones Negative Ur Blood (Man) Negative Urine Nitrate Negative Urine Bilirubin Negative Urine Urobilinogen 0.2 Leukocyte Esterase Rfl Negative Urine RBC 0-2 Urine WBC 0-5 Ur Squamous Epith Cells None seen Urine Bacteria None seen Urine Casts 3-5 03/27/25 03/27/25 04:43 04:48 WBC 6.6 RBC 4.18 L Hgb 12.9 Hct 39.2 MCV 93.8 MCH 30.9 MCHC 32.9 RDW 19.8 H Plt Count 277 MPV 10.6 H Immature Gran % (Auto) Not Reportable Neut % (Auto) Not Reportable Lymph % (Auto) Not Reportable [place] % (Auto) Not Reportable Eos % (Auto) Not Reportable Baso % (Auto) Not Reportable Lymph # (Auto) Not Reportable [place] # (Auto) Not Reportable Eos # (Auto) Not Reportable Baso # (Auto) Not Reportable Abs Immat Gran (auto) Not Reportable Absolute Neuts (auto) Not Reportable Absolute Nucleated RBC Not Reportable Total Counted 100 Neutrophils % (Manual) 46 Band Neutrophils % 1 Lymphocytes % (Manual) 41.0 Monocytes % (Manual) 5 Eosinophils % (Manual) 7 H Nucleated RBC % Not Reportable Abs Neuts (Manual) 3.10 Abs Lymphs (Manual) 2.70 Abs Monocytes (Manual) 0.33 Absolute Eos (Manual) 0.46 Atypical Lymphocytes Present Platelet Estimate Adequate Anisocytosis 1+ Schistocytes None seen Sodium 136 L Potassium 4.1 Chloride 103 Carbon Dioxide 27 Anion Gap 6 BUN 18 H Creatinine 1.33 H Estim Creat Clear Calc 34 Estimated GFR 40 L Glucose 95 POC Capillary Glucose 94 Hemoglobin A1c 6.7 H Calcium 8.8 Total Bilirubin AST ALT Alkaline Phosphatase Total Protein Albumin Vitamin B12 377.0 Folate 3.8 TSH (Reflex) 0.347 L Free T4 1.16 Total T3 1.00 Urine Color Urine Appearance Urine pH Ur Specific [place] Urine Protein Urine Glucose (UA) Urine Ketones Ur Blood (Man) Urine Nitrate Urine Bilirubin Urine Urobilinogen Leukocyte Esterase Rfl Urine RBC Urine WBC Ur Squamous Epith Cells Urine Bacteria Urine Casts Quality VTE Prophylaxis VTE prophylaxis: mechanical ordered
--- NOTE | 2025-03-27 17:19 | WPDNEURCNPN ---
Assessment and Plan Assessment and plan (1) Seizure disorder: Code(s): G40.909 - Epilepsy, unspecified, not intractable, without status epilepticus Status: Acute Plan the patient was on tramadol which can also be a risk factor for causing seizures. She does have history of seizure disorder and she was on anticonvulsant until 35 years ago. They have not been any witnessed seizures since that time. It should be noted that up to 30% seizures may not be witnessed. It is interesting that her blood glucose of 57 and was brought up by giving her dextrose and glucagon. She was not on any hypoglycemic agents. Whether these factors such as mild hypoglycemia or tramadol could have brought on the attack of seizure remains a fair speculation. Patient feels comfortable being on anticonvulsant. I advised to start her on Keppra 1500 mg initially then 750 mg twice a day. MRI of the brain brain was performed which shows white matter changes also some chronic ischemic changes noted in the [place] area. Her brought up the to see sometimes have some memory lapses this of course can be evaluated now patient in detail. Radiologist report on MRI still pending. A CT angiogram of the head and neck done on 09/11/2024 which did not show any significant abnormality. She was seen at the time because of ataxia. There is a history of peripheral neuropathy. The results of echocardiogram and EEG will follow. She has not had any further seizures however we should maintain seizure precautions. We should also discontinue tramadol. Consult date: 03/27/25 HPI: Arlin Hartman is a 69 year old female Who presented to the hospital with the history suggestive of seizure like spell. Her who was also present the time of this evaluation reports that she was trying to get out to go to bathroom around 130 in the afternoon but was having difficulty and ask for help and when she got to the restroom she collapsed and she asked to get a walker to help her get up. And after that she went in to a tonic-clonic jerking of all limbs. There was a drop of blood on the floor. Ambulance was called the phone blood glucose 257. It should be noted that she is not on any hypoglycemic agents or had any gastric bypass surgery. She has a mass in the right breast which is under investigation pre there is also history of tremor however this has not been a problem. She has had a surgeon the lumbar spine in October 2024 at [facility]. She is having pain going down the left lower limb. She still recovering from that. She is known to be prediabetic and has a hemoglobin A1c of 6.8 previously on 09/11/2024. He has also history of rheumatoid arthritis and she has been a smoker. She was on tramadol pre often tested the fact that she also used to have seizures 35 years ago in. She has had numerous seizures since he required medications to control them. Once he got controlled after year she is advised to get off the medication. to the best of her knowledge she did not have any spell until now. She has had her breakfast and did not skip any meals yesterday morning. However according to her she was acting somewhat confused even before this happened. This is asking what her sister was passed. Also she was unresponsive for nearly 10 minutes after that to her very long time to get back to close to normal state. He thinks that she is still not completely back to normal today although she is fairly close to it. She has a bedside commode. However she is moving all 4 limbs and is able to talk. Review of her records reveals that she has history of hypertension hyperlipidemia and prediabetic state And rheumatoid arthritis. There is also some mention of transient ischemic attack. Review of Systems Review of Systems: All systems reviewed & are unremarkable except as noted in HPI and below PMFSH Past Medical History Medical History (Updated 03/27/25 @ 17:25 by Jeb Colón MD) Seizure disorder Hypertension Endometriosis History of shingles Fatty liver Rheumatoid arthritis Transient ischemic attack Peripheral neuropathy Tobacco dependence Hyperlipidemia Surgical History Surgical History (Updated 03/27/25 @ 17:25 by Jeb Colón MD) History of appendectomy History of arthroplasty of both shoulders History of lumbar fusion History of cervical spinal surgery Social History Social History Social History: Surrogate medical decision maker: Tacho Westbrook, spouse. Code status: Full code. Smoking packs per day: 0.5 Smoking cigarettes per day: 10.0 Years smoked: 50 Smoking pack-years: 25.00 Smoking status: Current every day smoker Tobacco type: cigarettes Second hand tobacco smoke exposure: Yes Alcohol intake: current Substance use: current Do You Feel Safe in your Home?: Yes Lack of Transportation: No Lack of Food: Never True Current Housing: I Have Housing Concerned About Future Housing: No Difficulty Paying Gas/Electric Bills: No Difficulty Paying for Meds: No Currently Unemployed: No Education: Associate Degree Difficulty w/ Childcare or Family Care: No Additional living arrangements comments: Lives with spouse. 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 Spiritual care concerns: No Meds Home Medications and Allergies Home Medications ?Medication ?Instructions ?Recorded ?Confirmed ?Type amlodipine 5 mg tablet (Norvasc) 5 mg PO DAILY 09/11/24 03/26/25 History aspirin 81 mg capsule 81 mg PO DAILY 09/11/24 03/26/25 History cholecalciferol (vitamin D3) 125 15,000 unit PO WEEKLY 09/11/24 03/26/25 History mcg (5,000 unit) capsule hydrochlorothiazide 12.5 mg tablet 12.5 mg PO DAILY 09/11/24 03/26/25 History ibuprofen 800 mg tablet 800 mg PO Q6H PRN pain 09/11/24 03/26/25 History ixekizumab 80 mg/mL subcutaneous 80 mg subcut ONCE 09/11/24 03/26/25 History auto-injector (Taltz Autoinjector) losartan 100 mg tablet (Cozaar) 100 mg PO DAILY 09/11/24 03/26/25 History rosuvastatin 40 mg tablet (Crestor) 40 mg PO HS 09/11/24 03/26/25 History tizanidine 4 mg capsule 4 mg PO HS 09/11/24 03/26/25 History tramadol 50 mg tablet 50 mg PO .am 09/11/24 03/26/25 History tramadol 50 mg tablet 50 mg PO Q6-8H PRN pain 09/11/24 03/26/25 History hydroxychloroquine 200 mg tablet 200 mg PO DAILY 09/12/24 03/26/25 History (Plaquenil) gabapentin 300 mg capsule 900 mg PO TID 03/26/25 03/26/25 History Allergies Allergy/AdvReac Type Severity Reaction Status Date / Time Sulfa (Sulfonamide Allergy Severe Anaphylaxis Verified 03/26/25 13:51 Antibiotics) Vital Signs Vital Signs - 24 hr 03/26/25 17:53 03/26/25 18:13 03/26/25 18:36 Temperature 97.9 F 97.0 F L Pulse Rate 65 63 64 Respiratory Rate 15 20 14 Blood Pressure 172/85 H 164/75 H 169/76 H Pulse Oximetry 97 97 100 Oxygen Delivery 03/26/25 20:00 03/26/25 20:00 03/26/25 20:25 Temperature 97.8 F Pulse Rate 66 62 Respiratory Rate 12 Blood Pressure 161/66 H Pulse Oximetry 100 Oxygen Delivery Room Air 03/27/25 00:00 03/27/25 04:00 03/27/25 05:48 Temperature 97.5 F L Pulse Rate 62 64 69 Respiratory Rate 16 Blood Pressure 134/52 L Pulse Oximetry 100 Oxygen Delivery 03/27/25 08:00 03/27/25 08:00 03/27/25 12:13 Temperature Pulse Rate 62 72 Respiratory Rate Blood Pressure Pulse Oximetry Oxygen Delivery Room Air 03/27/25 14:00 Temperature 98.2 F Pulse Rate 64 Respiratory Rate 20 Blood Pressure 141/50 H Pulse Oximetry 99 Oxygen Delivery Exam Const: General: cooperative, well developed and alert Orientation/consciousness: oriented to person, oriented to place and oriented to time HENMT: Head: atraumatic Mouth: Yes oropharynx normal Eyes: Alignment and Position: position normal Pupils: Equal, round and reactive pupils present EOM: EOMs intact bilaterally Neck: Neck: supple Resp: Effort & Inspection: normal respiratory effort Cardio: Rhythm: regular rhythm Skin: General skin exam: normal color Neuro: General: Unable to assess gait Cranial nerves: Yes CN's II-XII intact bilaterally, Yes facial sensation intact/muscles of mastication intact, Yes Equal, round and reactive pupils present, Yes Bilaterally intact EOM present, Yes Nystagmus not present, Yes facial symmetry, Yes Midline tongue present, Yes Symmetric palate elevation present and Yes Ability to bilaterally elevate shoulders present Cognition (Neuro): normal cognition Speech: normal speech Motor exam (neuro): 5/5 motor strength present throughout, Motor fasciculations not present, Normal motor muscle tone present throughout and Motor abnormalities not present Sensory Exam: normal sensation Coordination: [id number] test normal and Normal rapid alternating movements of the distal upper extremity present (Neuro) Other: No tremor or cogwheeling was noted. Results Labs 03/27/25 04:48 03/27/25 04:48 Labs: Short CBC 03/27/25 Range/Units 04:48 WBC 6.6 (4.5-10.0) K/mm3 Hgb 12.9 (12.0-15.0) g/dL Hct 39.2 (37.0-47.0) % Plt Count 277 (150-375) k/mm3 BMP 03/27/25 04:48 Sodium 136 L Potassium 4.1 Chloride 103 Carbon Dioxide 27 BUN 18 H Creatinine 1.33 H Glucose 95 Calcium 8.8 Urine 03/26/25 Range/Units 17:26 Urine Color Yellow (Yellow) Urine Appearance Clear (Clear) Urine pH 5.5 (5.0-9.0) Ur Specific [place] 1.013 (1.001-1.035) Urine Protein 1+ H (Negative) mg/dL Urine Glucose (UA) Negative (Negative) mg/dL
[2025-03-27] MEDS: HYDROcodone/acetaminophen (*CRX) 5-325 MG TABLET 1 TAB PO (18:03)
[2025-03-27] MEDS: TIZANIDINE HCL 4 MG TABLET PO (20:47)
[2025-03-27] MEDS: ROSUVASTATIN 20 MG TABLET 40 MG PO (20:47)
[2025-03-28] VITALS (9 sets, daily range): BP systolic 138–164; BP diastolic 66–67; PULSE 60–85; RESP 16–18; TEMP 36.4–36.7; O2SAT 95–99
[2025-03-28 05:55] LABS: Hematocrit 40.6 % (37.0-47.0); Hemoglobin 13.1 g/dL (12.0-15.0); Mean Corpuscular HGB Conc 32.3 g/dl (32-36); Mean Corpuscular Hemoglobin 30.3 pg (26-34); Mean Corpuscular Volume 94.0 fl (80-100); Platelet Count Result 289 k/mm3 (150-375); Red Blood Count 4.32 M/mm3 (4.2-5.4); White Blood Count 6.7 K/mm3 (4.5-10.0)
[2025-03-28 06:16] LABS: Anion Gap 6 mmol/L (4-12); Blood Urea Nitrogen 18 mg/dL (7-17); Calcium 9.1 mg/dL (8.4-10.2); Carbon Dioxide 25 mmol/L (22-30); Chloride 104 mmol/L (98-107); Estimated CRCL calculation 45 ml/min; Estimated Glomerular Filt Rate 56; Glucose 111 mg/dL (65-110); Magnesium 2.3 mg/dL (1.6-2.3); Potassium 4.2 mmol/L (3.4-5.0); Sodium 135 mmol/L (137-145)
[2025-03-28] MEDS: levETIRAcetam Tablet 250 MG, levETIRAcetam Tablet 500 MG 750 MG PO ×2 (08:29→20:08)
[2025-03-28] MEDS: ASPIRIN 81 MG CHEWABLE TABLET PO (08:29)
[2025-03-28] MEDS: GABAPENTIN 300 MG CAPSULE 900 MG PO ×3 (08:29→17:22)
[2025-03-28] MEDS: LOSARTAN POTASSIUM 100 MG TABLET PO (08:29)
[2025-03-28] MEDS: HYDROXYCHLOROQUINE SULFATE 200 MG TABLET PO (08:29)
[2025-03-28] MEDS: HYDROcodone/acetaminophen (*CRX) 5-325 MG TABLET 1 TAB PO (08:32)
--- NOTE | 2025-03-28 14:40 | PM.IMPN ---
Progress Note: A&P Assessment and Plan (1) Syncope: Qualifiers: Syncope type: unspecified Qualified Code(s): R55 - Syncope and collapse Code(s): R55 - Syncope and collapse Status: Acute Assessment and Plan: Patient presents here with syncopal episode at home. No trauma sustained. estimates she was unconscious for approximately 10 minutes. Upon EMS arrival, the patient was sent to be hypoglycemic in the 50s. She was given glucagon and her blood sugar increased into the 70s. She has a distant history of seizures, has been off of medications for the past 35 years. Upon ED evaluation, patient disoriented to age only. Preop med no leukocytosis, UA was unremarkable, CXR not concerning for infection, and head CT unremarkable. EKG showed sinus rhythm, rate 79. - neurology consulted - given Keppra 1500 mg in the ED, continued on all Keppra 750 mg b.i.d. - seizure precautions - hypoglycemia protocol and q.6 Accu-Cheks - MR brain - check TSH, B12, folate (2) Hypoglycemia: Code(s): E16.2 - Hypoglycemia, unspecified Status: Acute Assessment and Plan: Glucose 57 upon EMS arrival, given or glucagon and increases 75. Seventy-nine upon arrival to the emergency department. - previous lab work reviewed, A1c 6.8% on 09/11/2024. Update. - home medications reviewed, patient is not on any antidiabetic medications - q.6 Accu-Cheks - hypoglycemia protocol (3) Hyperlipidemia: Qualifiers: Hyperlipidemia type: unspecified Qualified Code(s): E78.5 - Hyperlipidemia, unspecified Code(s): E78.5 - Hyperlipidemia, unspecified Status: Chronic Assessment and Plan: - continue home rosuvastatin (4) Hypertension: Qualifiers: Hypertension type: primary hypertension Qualified Code(s): I10 - Essential (primary) hypertension Code(s): I10 - Essential (primary) hypertension Status: Chronic Assessment and Plan: - chronic, currently 169/76 - continue home medications: Amlodipine, hydrochlorothiazide, losartan - monitor Plan patient with suspected seizures activities has bee started on Keppara, patient was seen by the neurologist and suspect patient with history of remote seizures may have triggered by tramadol and hyperglycemia recommended to continue Keppra, patient had MRI upon arrival pending results, I did order EEG and cardiac ECHO for further evaluation, seen by the neurologist, will monitor and plan, patient is present in the room gave updates. Diet: Heart healthy GI Prophylaxis: In/a DVT Prophylaxis: SCDs IV fluids: None Lines/Tubes: Peripheral IV Code Status: Full code Subjective Date/time seen: 03/28/25 14:40 Interval history: Syncopal Episode H&P-Narrative: 69 y/o F with PMH of RA, TIA, HLD, HTN, and distant history of seizures (over 35 years ago, off medications) presents here with suspected syncopal episode. The patient presents here from home via EMS for further evaluation of syncope. The following history was provided by the patient and her . They report that the patient was getting up to go to the bathroom when she asked for her 's help. She has a history of tremors of unknown etiology, has been ongoing for some years. She was having tremors at the time which is what prompted her to ask for help. Prior to sitting on the toilet she had a syncopal episode and her was able to catch her and lower her to the ground. He reports she was awake and responsive at that time and wanted to use her walker to get up instead of being pulled up. However every time he tried to let go to go get the walker she would fall backwards. Patient then went unresponsive and tensed up arching her back. No tonic clonic movements noted. He estimates she was unresponsive for 10 minutes (around time they called the ambulance to their arrival). Upon EMS arrival, the patient was found to be confused (A&Ox2-3) and slow to respond. She was found to be hypoglycemic with a glucose of 57. She was given oral dextrose which increased her blood sugar to 75. She denies history of diabetes and she is not currently on anti diabetic medications. She was additionally found to be hypertensive with a systolic in the 200s, has history of hypertension. She reports a distant history of seizures and was on medication for this a long time ago, last took seizure medications approximately 35 years ago. Patient additionally has chronic left lower extremity weakness s/p back surgery in October 2024. patient with suspected seizures activities has bee started on Keppara, patient was seen by the neurologist and suspect patient with history of remote seizures may have triggered by tramadol and hyperglycemia recommended to continue Keppra, patient had MRI upon arrival pending results, I did order EEG and cardiac ECHO for further evaluation, seen by the neurologist, will monitor and plan, patient is present in the room gave updates. Review of Systems Review of Systems: All systems reviewed & are unremarkable except as noted in HPI and below Exam Narrative: Patient is comfortable, NAD HEENT: eyes are clear and none icteric LUNGS:CTA HEART: RR S1S2 ABD: BS+, Soft and nontender Lower extremities: no edema SKIN: nonjaundiced Neuro: grossly intact. Objective Data Vital Signs Vital Signs: Vital Signs - 24 hr 03/27/25 16:00 03/27/25 20:00 03/27/25 20:00 Temperature Pulse Rate 63 71 Respiratory Rate Blood Pressure Pulse Oximetry Oxygen Delivery Room Air 03/27/25 21:01 03/27/25 23:16 03/28/25 00:00 Temperature 37.0 C Pulse Rate 76 60 Respiratory Rate 18 Blood Pressure 150/65 H Pulse Oximetry 97 97 Oxygen Delivery Room Air 03/28/25 04:00 03/28/25 06:00 03/28/25 08:00 Temperature 36.4 C Pulse Rate 75 80 85 Respiratory Rate 18 Blood Pressure 144/67 H Pulse Oximetry 96 Oxygen Delivery 03/28/25 08:30 03/28/25 12:00 03/28/25 14:00 Temperature 36.7 C Pulse Rate 68 70 Respiratory Rate 16 Blood Pressure 164/66 H Pulse Oximetry 99 Oxygen Delivery Room Air Intake/Output Intake/Output: Intake & Output 03/25/25 03/26/25 03/27/25 03/28/25 23:59 23:59 23:59 23:59 Intake Total 100 1310 680 Output Total 600 200 Balance 100 710 480 Meds/Results Medications: Active Medications Generic Name Dose Route Start Last Admin Trade Name Freq PRN Reason Stop Dose Admin Acetaminophen 650 mg 03/26/25 17:37 03/26/25 19:28 Acetaminophen 325 Mg Tablet PO 650 mg Q4H PRN Administration Mild Pain (1-3) or Fever Hydrocodone Bitart/Acetaminophen 1 tab 03/27/25 17:47 03/28/25 08:32 Hydrocodone/Acetaminophen (*Crx) 5-325 Mg Tablet PO 1 tab Q6H PRN Administration Pain Rated 4-6 Alprazolam 0.5 mg 03/27/25 09:32 03/27/25 09:53 Alprazolam (*Crx) 0.5 Mg Tablet PO 0.5 mg ONCE PRN Administration Anxiety Amlodipine Besylate 5 mg 03/27/25 09:00 03/28/25 08:29 Amlodipine Besylate 5 Mg Tablet PO 5 mg DAILY MERCEDEZ Administration Aspirin 81 mg 03/27/25 09:00 03/28/25 08:29 Aspirin 81 Mg Chewable Tablet PO 81 mg DAILY MERCEDEZ Administration Dextrose 12.5 gm 03/26/25 20:16 Dextrose 50% 25 Gm/50 Ml Syringe IV PUSH PRN PRN Hypoglycemia Protocol Gabapentin 900 mg 03/26/25 20:30 03/28/25 13:25 Gabapentin 300 Mg Capsule PO 900 mg TID MERCEDEZ Administration Glucagon 1 mg 03/26/25 20:16 Glucagon For Inj 1 Mg Vial IM PRN PRN Hypoglycemia Protocol Glucose 15 gm 03/26/25 20:16 Glucose Oral Gel 15 Gm Of Glucse In 37.5 Gm Tube PO PRN PRN Hypoglycemia Protocol Hydrochlorothiazide 12.5 mg 03/27/25 09:00 03/28/25 08:29 Hydrochlorothiazide 12.5 Mg Capsule PO 12.5 mg DAILY MERCEDEZ Administration Hydroxychloroquine Sulfate 200 mg 03/27/25 09:00 03/28/25 08:29 Hydroxychloroquine Sulfate 200 Mg Tablet PO 200 mg DAILY MERCEDEZ Administration Dextrose 1,000 mls @ 100 mls/hr 03/26/25 20:16 Dextrose 5% 1,000 Ml IVPB PRN PRN Hypoglycemia Protocol Ibuprofen 800 mg 03/26/25 20:29 03/26/25 20:42 Ibuprofen 400 Mg Tablet PO 800 mg Q6H PRN Administration Pain Rated 4-6 Levetiracetam 250 mg/ 750 mg 03/26/25 21:00 03/28/25 08:29 Levetiracetam 500 mg PO 750 mg Q12HR MERCEDEZ Administration Losartan Potassium 100 mg 03/27/25 09:00 03/28/25 08:29 Losartan Potassium 100 Mg Tablet PO 100 mg DAILY MERCEDEZ Administration Rosuvastatin Calcium 40 mg 03/26/25 21:00 03/27/25 20:47 Rosuvastatin 20 Mg Tablet PO 40 mg HS MERCEDEZ Administration Tizanidine HCl 4 mg 03/26/25 21:00 03/27/25 20:47 Tizanidine Hcl 4 Mg Tablet PO 4 mg HS MERCEDEZ Administration Vitamin D 375 mcg 04/03/25 09:00 Cholecalciferol (Vitamin D3) 125 Mcg (5,000 Units) Tablet PO Ag@0900 [facility] Radiology Results: ITS Impressions Chest X-Ray 03/26/25 14:54 Impression: No acute cardiopulmonary abnormality. Head CT 03/26/25 16:29 Impression: 1.No acute intracranial abnormality. Labs Labs: Laboratory Results - last 24 hr 03/27/25 03/27/25 03/28/25 17:08 23:31 05:15 WBC 6.7 RBC 4.32 Hgb 13.1 Hct 40.6 MCV 94.0 MCH 30.3 MCHC 32.3 RDW 19.4 H Plt Count 289 MPV 10.4 Sodium 135 L Potassium 4.2 Chloride 104 Carbon Dioxide 25 Anion Gap 6 BUN 18 H Creatinine 0.99 Estim Creat Clear Calc 45 Estimated GFR 56 L Glucose 111 H POC Capillary Glucose 81 119 H Calcium 9.1 Magnesium 2.3 03/28/25 03/28/25 06:00 11:46 WBC RBC Hgb Hct MCV MCH MCHC RDW Plt Count MPV Sodium Potassium Chloride Carbon Dioxide Anion Gap BUN Creatinine Estim Creat Clear Calc Estimated GFR Glucose POC Capillary Glucose 106 H 138 H Calcium Magnesium Quality VTE Prophylaxis VTE prophylaxis: mechanical ordered
[2025-03-28] MEDS: TIZANIDINE HCL 4 MG TABLET PO (20:08)
[2025-03-28] MEDS: ROSUVASTATIN 20 MG TABLET 40 MG PO (20:09)
[2025-03-29] VITALS: PULSE 72
[2025-03-29] MEDS: HYDROcodone/acetaminophen (*CRX) 5-325 MG TABLET 1 TAB PO (03:57)
[2025-03-29 04:00] VITALS: PULSE 90
[2025-03-29 04:56] LABS: Hematocrit 41.5 % (37.0-47.0); Hemoglobin 13.8 g/dL (12.0-15.0); Mean Corpuscular HGB Conc 33.3 g/dl (32-36); Mean Corpuscular Hemoglobin 30.8 pg (26-34); Mean Corpuscular Volume 92.6 fl (80-100); Platelet Count Result 325 k/mm3 (150-375); Red Blood Count 4.48 M/mm3 (4.2-5.4); White Blood Count 7.8 K/mm3 (4.5-10.0)
[2025-03-29 05:15] LABS: Anion Gap 7 mmol/L (4-12); Blood Urea Nitrogen 17 mg/dL (7-17); Calcium 9.2 mg/dL (8.4-10.2); Carbon Dioxide 25 mmol/L (22-30); Chloride 102 mmol/L (98-107); Estimated CRCL calculation 53 ml/min; Estimated Glomerular Filt Rate > 60; Glucose 147 mg/dL (65-110); Magnesium 2.0 mg/dL (1.6-2.3); Potassium 4.2 mmol/L (3.4-5.0); Sodium 134 mmol/L (137-145)
[2025-03-29 05:33] VITALS: BP 151/73; PULSE 63; RESP 17; TEMP 36.5; O2SAT 100
[2025-03-29 08:00] VITALS: PULSE 73
[2025-03-29] MEDS: ASPIRIN 81 MG CHEWABLE TABLET PO (08:24)
[2025-03-29] MEDS: HYDROXYCHLOROQUINE SULFATE 200 MG TABLET PO (08:24)
[2025-03-29] MEDS: GABAPENTIN 300 MG CAPSULE 900 MG PO ×2 (08:25→12:33)
[2025-03-29] MEDS: levETIRAcetam Tablet 250 MG, levETIRAcetam Tablet 500 MG 750 MG PO (08:25)
[2025-03-29] MEDS: LOSARTAN POTASSIUM 100 MG TABLET PO (08:25)
[2025-03-29 12:00] VITALS: PULSE 93
[2025-03-29 14:00] VITALS: BP 156/73; PULSE 98; RESP 16; TEMP 36.6; O2SAT 100
--- NOTE | 2025-03-29 15:56 | P.DS_ITS ---
DS: Admitting Diagnosis Discharge Date 03/29/25 Admitting Diagnosis Syncopal Episode DS: Discharge Diagnosis Discharge Diagnosis (1) Syncope: Qualifiers: Syncope type: unspecified Qualified Code(s): R55 - Syncope and collapse Code(s): R55 - Syncope and collapse Status: Acute Assessment and Plan: Patient presents here with syncopal episode at home. No trauma sustained. estimates she was unconscious for approximately 10 minutes. Upon EMS arrival, the patient was sent to be hypoglycemic in the 50s. She was given glucagon and her blood sugar increased into the 70s. She has a distant history of seizures, has been off of medications for the past 35 years. Upon ED evaluation, patient disoriented to age only. Preop med no leukocytosis, UA was unremarkable, CXR not concerning for infection, and head CT unremarkable. EKG showed sinus rhythm, rate 79. - neurology consulted - given Keppra 1500 mg in the ED, continued on all Keppra 750 mg b.i.d. - seizure precautions - hypoglycemia protocol and q.6 Accu-Cheks - MR brain - check TSH, B12, folate (2) Hypoglycemia: Code(s): E16.2 - Hypoglycemia, unspecified Status: Acute Assessment and Plan: Glucose 57 upon EMS arrival, given or glucagon and increases 75. Seventy-nine upon arrival to the emergency department. - previous lab work reviewed, A1c 6.8% on 09/11/2024. Update. - home medications reviewed, patient is not on any antidiabetic medications - q.6 Accu-Cheks - hypoglycemia protocol (3) Hyperlipidemia: Qualifiers: Hyperlipidemia type: unspecified Qualified Code(s): E78.5 - Hyperlipidemia, unspecified Code(s): E78.5 - Hyperlipidemia, unspecified Status: Chronic Assessment and Plan: - continue home rosuvastatin (4) Hypertension: Qualifiers: Hypertension type: primary hypertension Qualified Code(s): I10 - Essential (primary) hypertension Code(s): I10 - Essential (primary) hypertension Status: Chronic Assessment and Plan: - chronic, currently 169/76 - continue home medications: Amlodipine, hydrochlorothiazide, losartan - monitor Plan patient with suspected seizures activities has bee started on Keppara, patient was seen by the neurologist and suspect patient with history of remote seizures may have triggered by tramadol and hyperglycemia recommended to continue Keppra, patient had MRI upon arrival pending results, I did order EEG and cardiac ECHO for further evaluation, seen by the neurologist, will monitor and plan, patient is present in the room gave updates. Diet: Heart healthy GI Prophylaxis: In/a DVT Prophylaxis: SCDs IV fluids: None Lines/Tubes: Peripheral IV Code Status: Full code DS: Summary Hospital Course Hospital Course: patient with suspected seizures activities has bee started on Keppra, patient was seen by the neurologist and suspect patient with history of remote seizures may have triggered by tramadol and hyperglycemia recommended to continue Keppra, patient had MRI upon arrival pending results, I did order EEG and cardiac ECHO for further evaluation, seen by the neurologist, will monitor and plan, patient is present in the room gave updates. Patient was started on Keppra, no seizures while in the hospital, patient remains clinically stable, discussed with Dr. Colón, neurologist, patient is okay to discharge and follow up in the clinic, patient is instructed not to drive until seen by her neurologist. Time Spent with Patient Time attestation: Total time spent providing and/or coordinating discharge services: Exam Narrative: Patient is comfortable, NAD HEENT: eyes are clear and none icteric LUNGS:CTA HEART: RR S1S2 ABD: BS+, Soft and nontender Lower extremities: no edema SKIN: nonjaundiced Neuro: grossly intact. DS: Data Data Completed and Pending Labs on day of discharge: Labs from last 24 hours 03/29/25 03/29/25 03/29/25 12:04 05:28 04:43 WBC 7.8 RBC 4.48 Hgb 13.8 Hct 41.5 MCV 92.6 MCH 30.8 MCHC 33.3 RDW 19.0 H Plt Count 325 MPV 10.6 H Sodium 134 L Potassium 4.2 Chloride 102 Carbon Dioxide 25 Anion Gap 7 BUN 17 Creatinine 0.84 Estim Creat Clear Calc 53 Estimated GFR > 60 Glucose 147 H POC Capillary Glucose 110 H 159 H Calcium 9.2 Magnesium 2.0 03/28/25 03/28/25 23:52 17:13 WBC RBC Hgb Hct MCV MCH MCHC RDW Plt Count MPV Sodium Potassium Chloride Carbon Dioxide Anion Gap BUN Creatinine Estim Creat Clear Calc Estimated GFR Glucose POC Capillary Glucose 120 H 76 Calcium Magnesium Discharge Plan Discharge Attending physician on discharge: Simone Vega Consulting providers: Viri Singh; Jeb Colón; Nolvia Shipley; Regan Merino; Davin Byrd; Prince Higuera Discharging Clinician: Wang Stevens Patient Disposition: Home Activity: no driving and as tolerated Diet: heart healthy Discharge Instructions: Patient is instructed no driving until seen by her neurologist, patient to follow up with her primary care provider as soon as possible. patient is instructed if any symptoms redevelop to go to nearest ER. Patient is instructed not take tramadol. Patient Instructions: Antibiotic Form Patient Language: Spanish Stand Alone Forms: General Discharge Information Follow-up/Referrals: Jeb Colón MD [Physician, Neurology] PHYSICIAN NOT ON STAFF,NONSTAFF [Primary Care Provider] Discharge Medications: New hydrocodone-acetaminophen 5-325 mg Tablet 1 tablet PO Q6H PRN (Reason: Pain Rated 4-6) Qty: 15 0RF levetiracetam 250 mg Tablet 750 mg PO Q12HR Qty: 180 0RF Continued tizanidine 4 mg capsule 4 mg PO HS tramadol 50 mg tablet 50 mg PO .am amlodipine [Norvasc] 5 mg tablet 5 mg PO DAILY rosuvastatin [Crestor] 40 mg tablet 40 mg PO HS ibuprofen 800 mg tablet 800 mg PO Q6H PRN (Reason: pain) aspirin 81 mg capsule 81 mg PO DAILY losartan [Cozaar] 100 mg tablet 100 mg PO DAILY hydrochlorothiazide 12.5 mg tablet 12.5 mg PO DAILY Taltz Autoinjector 80 mg/mL auto-injector 80 mg subcut ONCE Patient Comments: Pt takes q4wks due tomorrow will bring dose cholecalciferol (vitamin D3) 125 mcg (5,000 unit) capsule 15,000 unit PO WEEKLY Patient Comments: due tomorrow hydroxychloroquine [Plaquenil] 200 mg tablet 200 mg PO DAILY gabapentin 300 mg capsule 900 mg PO TID Discontinued tramadol 50 mg tablet 50 mg PO Q6-8H PRN (Reason: pain) Date of admission: 03/26/25 17:38 Primary Care Provider: PHYSICIAN NOT ON STAFF,NONSTAFF Admitting Provider: Simone Vega Attending physician on admission: Wang Stevens Condition: Stable
--- NOTE | 2025-03-31 11:11 | WPDNEUROLOGY ---
Neurology EEG Report General Information Date of Study: 03/29/25 TEST Electroencephalogram DIAGNOSIS seizure disorder CONDITION OF RECORDING bedside recording EEG NUMBER [id number] CLINICAL HISTORY the patient is 69-year-old with history of recent seizure like event. There is also previous history of seizure disorder around 30-35 years ago. EEG DESCRIPTION During wakefulness the background activity consists of low amplitude mixed frequency activity.. Posterior dominant rhythm in alpha range at 9-10 hertz with an amplitude of 10-25 microvolts was noted. There is no significant anteroposterior gradient. During drowsiness attenuation of background activity was seen however patient did not progress to stage 2 sleep. Photic stimulation was performed during which no significant abnormal background changes were seen. Photic station was attempted but could not be finished. IMPRESSION This is a normal EEG obtained during awake and drowsy states.
== END 2025-03-29 16:25 | disposition home or self-care (01) ==
LOC: ANHED 16:59 → ANH2MED 03-29 11:18
PROVIDERS: Student in an Organized Health Care Education/Training Program; Admitting Provider General Practice; Emergency Provider Emergency Medicine; Visit Provider Family Medicine
DX: R55 Syncope and collapse (principal); G40.909 Epilepsy, unspecified, not intractable, without status epilepticus; E16.2 Hypoglycemia, unspecified; N63.10 Unspecified lump in the right breast, unspecified quadrant; I10 Essential (primary) hypertension; E78.5 Hyperlipidemia, unspecified; G62.9 Polyneuropathy, unspecified; M06.9 Rheumatoid arthritis, unspecified; F17.210 Nicotine dependence, cigarettes, uncomplicated; Z86.73 Personal history of transient ischemic attack (TIA), and cerebral infarction without residual deficits; Z98.1 Arthrodesis status
CPT/HCPCS: 36415; 70450; 70553; 71046; 80048; 80053; 81001; 82607; 82746; 82948; 83036; 83735; 84439; 84443; 84480; 85025; 85027; 93005; 95816; 96365; 96375; 99285; A9270; A9577; G0378; J1953; J2270; J2405